=== PATIENT | female | born 1940 | race Caucasian/White ===

== ENCOUNTER 2025-05-05 18:14 | Inpatient (IN) | payer MEDICARE, MEDICAID, SELFPAY ==
[2025-05-05 18:19] VITALS: BP 128/64; PULSE 76; RESP 19; TEMP 36.6; O2SAT 95
--- NOTE | 2025-05-05 18:24 | PD.EDABDPN ---
ED Abdominal Pain RME/HPI General Chief Complaint: Nausea/Vomiting/Diarrhea Stated complaint: ABD PAIN Arrival date/time: 05/05/25 18:14 RME / HPI RME / HPI narrative: This section includes all my notes and documentations, including HPI, PE, and ED course. Donn Mantilla MD HPI: 85 y/o female with SHx of Hysterectomy and Hx of Type II DM and CHF BIBA from [facility] presents with several days of abdominal distention and vomiting. Denies history of liver disease or alcohol use. No other complaints. ROS: All negative except as documented in HPI. Physical Exam: General: Alert and oriented. In mild respiratory distress. Eyes: Conjunctivae and lids clear. ENT: No nasal congestion. Neck: Supple. Heart: Irregularly irregular (68 bpm). Lungs: In mild respiratory distress. Mildly decreased air movement with rales. Abdomen: Severely distended with equivocal tenderness, difficult to localize. Back: No CVA tenderness. Skin: Warm and dry. Legs: Moderate edema. Neuro: Alert and oriented X 3. I reviewed all diagnostic test results: My interpretation of the EKG is: Atrial fibrillation (73 bpm) with nonspecific ST-T changes. My interpretation of the chest x-ray is increased vascular congestion. My review of the Venous Doppler Study report is no DVT. My review of the Chest CTA report is: Negative for pulmonary artery emboli. Cirrhosis, prominent ascites. My review of the Abdomen/Pelvis CT report is: Cirrhosis. Prominent ascites. Splenomegaly. Blood tests and urine tests remarkable for ESR 84, D-dimer 2170, Cr 1.4, Mg 1.3, Alk Phos 360, CRP 2.8, BNP 147, and Glu 193. Covid/Influenza: Negative. At this point, diagnoses include: Ascites, Cirrhosis, Hypomagnesemia, MACIEL, CHF, Hyperglycemia. Treatment here from me included: Morphine 2 mg, Zofran 4 mg, and SoluMedrol 125 mg (for itching of her legs). Patient remained stable. 2122: I discussed the case with our health safety coordinator and our hospitalist. About the presentation and exam and diagnostics and treatments here. And need of further care in the hospital. Will accept the patient. Donn Mantilla MD Related Data Home Medications ?Medication ?Instructions ?Recorded ?Confirmed desloratadine 5 mg tablet 5 mg PO DAILY 01/26/23 07/19/24 (Clarinex) donepezil 5 mg tablet 5 mg PO DAILY 01/26/23 07/19/24 aspirin 325 mg tablet,delayed 325 mg PO QDAY 06/07/24 07/19/24 release levothyroxine 137 mcg tablet 137 mcg PO QAM 06/07/24 07/19/24 (Synthroid) metformin 500 mg tablet,extended 500 mg PO QPM 06/07/24 07/19/24 release 24 hr sacubitril 97 mg-valsartan 103 mg 1 tab PO BID 06/07/24 07/19/24 tablet (Entresto) spironolactone 25 mg tablet 25 mg PO QDAY 06/07/24 07/19/24 trimethoprim 100 mg tablet 100 mg PO QDAY 06/07/24 07/19/24 Previous Rx's ?Medication ?Instructions ?Recorded furosemide 20 mg tablet 20 mg PO QAM #30 tabs 06/09/24 gabapentin 100 mg capsule 100 mg PO TID 30 days #90 caps 07/19/24 hydrocodone 5 mg-acetaminophen 325 1 tab PO Q8H PRN pain #14 tabs 07/19/24 mg tablet Allergies Allergy/AdvReac Type Severity Reaction Status Date / Time codeine Allergy Severe HOT FLASHES Verified 06/07/24 12:25 UNKNOWN ANTIBIOTIC Allergy Severe Hives Uncoded 06/07/24 12:25 Review of Systems Review of Systems Systems Reviewed: All systems reviewed, normal except as documented Past Medical History Past Medical History NEUROLOGIC: Positive Dementia CARDIAC: Positive Cardiac Disorders, Congestive Heart Failure and Hypertension MUSCULOSKELETAL: Positive Arthritis ENT: Positive Cataracts ENDOCRINE: Positive Diabetes Mellitus Type 2 and Hypothyroidism OTHER HISTORY: Positive Radiation Therapy and Cancer Surgical History SURGICAL: Positive Hysterectomy ED Exam Narrative Physical exam: Refer to HPI Course Course Course Narrative: CXR is ordered for determining the etiology of shortness of breath. Quality Measures none Orders Category Date Time Status Bedside COVID-19 Antigen Test NOW Care 05/05/25 18:36 Active Bedside Influenza A&B Antigen Test NOW Care 05/05/25 18:36 Completed COVID-19 Screening Questionnaire NOW Care 05/05/25 21:[address] Screening NOW Care 05/05/25 18:[address] Screening NOW Care 05/05/25 20:01 Completed Decision to Admit X1 Care 05/05/25 21:56 Completed EKG (ED ONLY) *Do not use* NOW Care 05/05/25 18:36 Completed Saline [Insert IV] NOW Care 05/05/25 18:36 Active Straight [In and Out Catheter] X1 Care 05/05/25 18:36 Completed Consult to Gastroenterology Stat Cons 05/05/25 21:[address] abdomen pelvis w con Stat Exams 05/05/25 18:[address] angio chest Stat Exams 05/05/25 18:37 Completed EKG (ED Only) Stat Exams 05/05/25 18:36 Draft US abdomen Stat Exams 05/05/25 21:26 Completed US venous doppler LE BI Stat Exams 05/05/25 20:01 Completed XR chest 1V portable Stat Exams 05/05/25 18:36 Completed Ammonia Stat Lab 05/05/25 19:01 Completed Amylase Stat Lab 05/05/25 19:01 Completed BNP [B-Type Natriuretic Peptide] Stat Lab 05/05/25 19:01 Completed Bilirubin,Direct Stat Lab 05/05/25 19:01 Completed Blood Culture (Lab) Stat Lab 05/05/25 19:01 Received CBC Stat Lab 05/05/25 19:01 Completed CMP [Comprehensive Metabolic Panel] Stat Lab 05/05/25 19:01 Completed CRP [C-Reactive Protein] Stat Lab 05/05/25 19:01 Completed D-Dimer Stat Lab 05/05/25 19:01 Completed ESR [Sed Rate (ESR)] Stat Lab 05/05/25 19:01 Completed Free T4 (Free Thyroxine) Stat Lab 05/05/25 19:01 Completed Lactate (Lactic Acid) Stat Lab 05/05/25 19:01 Completed Lipase Stat Lab 05/05/25 19:01 Completed Magnesium Stat Lab 05/05/25 19:01 Completed PT [Prothrombin Time with INR] Stat Lab 05/05/25 19:01 Completed PTT [Partial Thromboplastin Time] Stat Lab 05/05/25 19:01 Completed Procalcitonin Stat Lab 05/05/25 19:01 Completed TSH [Thyroid Stimulating Hormone] Stat Lab 05/05/25 19:01 Completed Troponin I Stat Lab 05/05/25 19:01 Completed UA, C/S IF [Urinalysis, C/S if Indicated] Stat Lab 05/05/25 21:29 Completed Magnesium Sulfate 2 GM Ivpb [Magnesium Sulfate Ivpb] Med 05/05/25 20:00 Discontinued 2 gm in 50 ml IV X1 MethylPREDNISolone.* [SoluMEDROL Inj] Med 05/05/25 21:30 Discontinued 125 mg IVP X1 ONE Morphine Inj Med 05/05/25 18:36 Discontinued 2 mg IVP X1 ONE Ondansetron Inj [Zofran Inj] Med 05/05/25 18:36 Discontinued 4 mg IVP X1 ONE Vital Signs Vital signs: Vital Signs Temperature 97.8 F 05/05/25 18:19 Pulse Rate 76 05/05/25 18:19 Respiratory Rate 19 05/05/25 18:19 Blood Pressure 128/64 05/05/25 18:19 Pulse Oximetry (%) 95 05/05/25 18:19 Oxygen Delivery Method Room Air 05/05/25 18:19 Abdominal Pain MDM MDM Narrative MDM Narrative:: Scribe Attestation: I, Mana Tejada, am scribing for and in the presence of Dr. Mantilla. Provider Notation: Although this document has been carefully reviewed, there may still be some phonetic and other typographical errors.? These errors are purely grammatical due to imperfections in the software program and should not be construed in any way to? compromise the substance of the patient's medical care during this visit. 85 y/o female with SHx of Hysterectomy and Hx of Type II DM and CHF BIBA from [facility] presents with several days of abdominal distention and vomiting. Denies history of liver disease or alcohol use. No other complaints. Patient data External records reviewed:: [facility] previous records (Reviewed prior ED records from 07/23/24. Patient was seen for Atypical chest pain.) and EMS form Clinical information provided by:: patient and EMS Social determinants that could affect healthcare access:: none Patient has the following chronic illnesses:: Dementia, Congestive Heart Failure, Hypertension, Arthritis, Cataracts, Diabetes Mellitus Type 2, Hypothyroidism How is presenting disease/condition affected by chronic disease/condition?: exacerbated by Evaluation data The following diagnostics were reviewed and interpreted by me:: lab results, radiology exam(s) and EKG tracing(s) (My interpretation of the EKG is: Atrial fibrillation (73 bpm) with nonspecific ST-T changes. Donn Mantilla MD) Lab and/or radiology exams considered but not ordered:: None Interpretation Summary: I reviewed all diagnostic test results: My interpretation of the EKG is: Atrial fibrillation (73 bpm) with nonspecific ST-T changes. My interpretation of the chest x-ray is increased vascular congestion. My review of the Venous Doppler Study report is no DVT. My review of the Chest CTA report is: Negative for pulmonary artery emboli. Cirrhosis, prominent ascites. My review of the Abdomen/Pelvis CT report is: Cirrhosis. Prominent ascites. Splenomegaly. Blood tests and urine tests remarkable for ESR 84, D-dimer 2170, Cr 1.4, Mg 1.3, Alk Phos 360, CRP 2.8, BNP 147, and Glu 193. Covid/Influenza: Negative. Medications / Prescriptions Medications or Prescriptions considered but not ordered:: None Medication administrations:: Medication Administration History Acetaminophen (Acetaminophen 325 Mg Tablet) 650 mg PO Q6H PRN PRN Reason: Fever >101.5 Stop: 06/04/25 22:17 Acetaminophen (Acetaminophen 325 Mg Tablet) 650 mg PO Q6H PRN PRN Reason: PAIN SCALE 1-3 (mild Stop: 06/04/25 22:22 Hydrocodone Bitart/Acetaminophen (Hydrocodone/Apap 5/325 Tablet) 1 tab PO Q4HR PRN PRN Reason: PAIN SCALE 4-6 (Moderate Stop: 05/10/25 22:22 Atorvastatin Calcium (Atorvastatin Calcium 20 Mg Tablet) 20 mg PO HS [facility] Stop: 06/05/25 20:59 Carvedilol (Carvedilol 3.125 Mg Tablet) 3.125 mg PO BIDWM [facility] Stop: 06/05/25 07:59 Donepezil HCl (Donepezil Hcl 5 Mg Tablet) 5 mg PO HS [facility] Stop: 06/05/25 20:59 Furosemide (Furosemide 40 Mg Tablet) 40 mg PO QDAY [facility] Stop: 06/05/25 08:59 Levothyroxine Sodium (Levothyroxine Sodium 100 Mcg Tablet) 150 mcg PO ACBR [facility] Stop: 06/05/25 05:59 Loratadine (Loratadine 10 Mg Tablet) 10 mg PO QDAY [facility] Stop: 06/05/25 08:59 Ondansetron HCl (Ondansetron Inj 2 Mg/Ml Inj 2 Ml) 4 mg IVP Q6H PRN; Protocol PRN Reason: NAUSEA OR VOMITING Stop: 06/04/25 22:22 Spironolactone (Spironolactone 25 Mg Tablet) 50 mg PO QDAY [facility] Stop: 06/04/25 23:09 Discontinued Medications Magnesium Sulfate (Magnesium Sulfate Ivpb) 2 gm in 50 mls @ 25 mls/hr IV X1 ONE Stop: 05/05/25 21:59 Last Infusion: 05/05/25 22:46 Dose: Infused Documented By: Admin: 05/05/25 20:44 Dose: 25 mls/hr Documented By: MARILIA Methylprednisolone Sodium Succinate (Methylprednisolone Sod Succ 62.5 Mg/Ml 2ml Vial) 125 mg IVP X1 ONE Stop: 05/05/25 21:31 Last Admin: 05/05/25 21:45 Dose: 125 mg Documented By: MAE Morphine Sulfate (Morphine Sulf Inj 10 Mg/Ml Vial) 2 mg IVP X1 ONE Stop: 05/05/25 18:37 Last Admin: 05/05/25 19:05 Dose: Not Given Documented By: JEFF Non-Admin Reason: Patient Refused Ondansetron HCl (Ondansetron Inj 2 Mg/Ml Inj 2 Ml) 4 mg IVP X1 ONE; Protocol Stop: 05/05/25 18:37 Last Admin: 05/05/25 19:05 Dose: 4 mg Documented By: JEFF Treatment here from me included: Morphine 2 mg, Zofran 4 mg, and SoluMedrol 125 mg (for itching of her legs). Consultations Consultation(s) initiated? (list below): Yes Consultation #1 (Physician, Specialty, Details): 2122: I discussed the case with our health safety coordinator and our hospitalist. About the presentation and exam and diagnostics and treatments here. And need of further care in the hospital. Will accept the patient. Time: 21:19 Diagnosis Differential diagnosis abdominal pain: abdominal pain, constipation, diverticulitis, gastroenteritis, pancreatitis, small bowel obstruction and other (Gastroparesis, Crohn's, ulcerative colitis, celiac disease, pancreatic insufficiency, gastric outlet obstruction, ascites) Most likely diagnosis given after review of the tests above:: At this point, diagnoses include: Ascites, Cirrhosis, Hypomagnesemia, MACIEL, CHF, Hyperglycemia. Admission Indicated Admission indicated?: indicated Explain why admission is indicated or not indicated:: Ascites, Cirrhosis, Hypomagnesemia, MACIEL, CHF, HYperglycemia Admission Request Was there a request for admission?: Yes Admission Attestation Admission request attestation: Discussed case with Hospitalist service regarding admission. Discussed patients ED course, exam findings, labs, and radiology results. The Hospitalist [agrees] to accept the patient for admission. Disposition Plan Disposition Plan: Admit Discharge Plan Plan Patient Disposition: Admit Acute Care w/in Hospital Problem List Clinical Impression: Ascites, Cirrhosis, Hypomagnesemia, MACIEL (acute kidney injury), Hyperglycemia, CHF (congestive heart failure)
--- NOTE | 2025-05-05 18:36 | EKG_ITS ---
[facility] Test Date: 2025-05-05 Pat Name: ELZBIETA PLATA Department: Room: - Gender: Female [employer]: : 1940 Requested By: Donn Francisco Order Number: [id number] Reading MD: Donn Francisco Measurements Intervals [place] Rate: 68 P: -79 GA: 220 QRS: -59 QRSD: 116 T: 94 QT: 400 QTc: 426 Interpretive Statements ECTOPIC ATRIAL RHYTHM WITH FIRST DEGREE AV BLOCK LOW QRS VOLTAGE IN PRECORDIAL LEADS [QRS DEFLECTION < 1.0 mV IN CHEST LEADS] LEFT VENTRICULAR HYPERTROPHY AND ST-T CHANGE [VOLTAGE CRITERIA PLUS ST/T ABNORMALITY] INFERIOR MYOCARDIAL INFARCTION , OF INDETERMINATE AGE [40+ ms Q WAVE AND/OR ST/T ABNORMALITY IN II/aVF] ANTEROLATERAL MYOCARDIAL INFARCTION , OF INDETERMINATE AGE [40+ ms Q WAVE IN I/aVL/V3-V6] Compared to ECG 07/16/2024 10:09:39 Ectopic atrial rhythm now present First degree AV block now present Low QRS voltage now present Left anterior fascicular block no longer present ST (T wave) deviation still present Myocardial infarct finding still present /[id number]/S0/[id number].pdf
--- NOTE | 2025-05-05 18:36 | XR_ITS ---
Examination: AP chest single view Technique one AP portable upright chest single view Date and time: May 05, 2025 1838 hours INDICATIONS: Shortness of breath today. FINDINGS: Mild prominence left ventricle Enlarged ectatic thoracic aorta. Mild vascular congestion Mild elevation right hemidiaphragm. Subsegmental atelectasis left base. No pneumonia or pulmonary edema IMPRESSION: No pneumonia or pulmonary edema. Mild vascular congestion
--- NOTE | 2025-05-05 18:37 | XR_ITS ---
Examination: CTA chest with intravenous contrast 2-D reconstructions 3-D reconstructions, vascular Date and time of exam: May 05, 2025 1953 hours INDICATIONS: Shortness of chest pain beginning 7 days ago CTDI: vol (mGy) 33.72 DLP: (mGycm) 334 Technique: Multiple axial sections of the thorax have been obtained. 3 mm slice thickness, from below the hemidiaphragms to above the apices of the lungs. Mediastinal and lung density settings have been obtained. 2-D sagittal and coronal reconstructions. 3-D angiographic renderings, 3-D volume renderings, 3D post processing, vascular maximum intensity projections obtained. Contrast administered is 60 cc Isovue 300. Low dose protocols were performed. One or more of the following dose reduction techniques were used; automated exposure control, adjustment of the mA and/or KV according to patient size, use of iterative reconstruction technique. Findings: Transverse dimension ascending thoracic aorta 4.6 cm No pulmonary artery emboli Significant calcification left anterior descending coronary artery. No paratracheal tracheobronchial or bronchopulmonary adenopathy Bilateral calcified granulomas Descending thoracic aorta AP dimension 3.4 cm No pneumonia or pulmonary edema Cirrhosis Prominent ascites Absent gallbladder Splenomegaly. IMPRESSION: Thoracic aortic aneurysmal dilatation Negative for pulmonary artery emboli Cirrhosis, prominent ascites
--- NOTE | 2025-05-05 18:37 | XR_ITS ---
Examination: CT abdomen with intravenous contrast CT pelvis with intravenous contrast 2-D coronal reconstructions 2-D sagittal reconstructions Date and time of exam:May 05, 2025 195 hours COMPARISON: July 16, 2024 INDICATIONS: Abdominal pain and distention today. CTDI: vol (mGy) 10.6 DLP: (mGycm) 651 Technique: Multiple axial sections of the abdomen and pelvis have been obtained. 64 slice high-resolution scanner used. 3 mm axial sections have been obtained, post intravenous injection of 60 cc Isovue 300 2-D sagittal, coronal reconstructions obtained. Low dose protocols were performed. One or more of the following dose reduction techniques were used; automated exposure control, adjustment of the mA and/or KV according to patient size, use of iterative reconstruction technique. Findings: Cirrhosis Prominent ascites Splenomegaly Portosystemic collateral vessels medial to the spleen No pancreatic or adrenal mass Severe bilateral renal scar formation Abdominal aortic calcification no aneurysmal dilatation. No bowel obstruction Intact urinary bladder Absent uterus Bilateral inguinal hernias, containing fluid on the left Severe osteopenia Chronic osteoporotic compression L1 Significant narrowing hip joints IMPRESSION: Cirrhosis Prominent ascites Splenomegaly Portosystemic collateral vessels medial to the spleen Severe bilateral renal scar formation
[2025-05-05 18:38] VITALS: PULSE 77; O2SAT 99; BMI 29.0
[2025-05-05] MEDS: ONDANSETRON INJ 2 MG/ML INJ 2 ML 4 MG IVP (19:05)
[2025-05-05 19:15] LABS: Lactate (Lactic Acid) 1.9 mMol/L (0.4-2.0)
[2025-05-05 19:20] LABS: Basophils # (Auto) 0.1 Thou/mm3 (0.0-0.2); Basophils % (Auto) 1 % (0-2.5); Eosinophils # (Auto) 0.6 Thou/mm3 (0.0-0.5); Eosinophils % (Auto) 11 % (0-10); Hematocrit 39.9 % (36.0-46.0); Hemoglobin 12.8 g/dL (12.0-16.0); Immature Granulocytes Auto 0.01 Thou/mm3 (0.00-0.00); Lymphocytes # (Auto) 1.1 Thou/mm3 (1.0-4.8); Lymphocytes % (Auto) 20 % (10-50); Mean Corpuscular HGB Conc 32.1 g/dl (31.0-37.0); Mean Corpuscular Hemoglobin 31.9 pg (25.0-35.0); Mean Corpuscular Volume 100 fL (80-100); Monocytes # (Auto) 0.6 Thou/mm3 (0.0-0.8); Monocytes % (Auto) 10 % (0-12); Neutrophils # (Auto) 3.1 Thou/mm3 (1.8-7.7); Neutrophils % (Auto) 58 % (37-80); Nucleated Red Blood Cell # 0.00 Thou/mm3 (0.00-0.00); Nucleated Red Blood Cell % 0 /100 WBC (0); Platelet Count 106 Thou/mm3 (140-440); RDW Standard Deviation 54.4 fL (36.4-46.3); Red Blood Count 4.01 Miln/mm3 (4.00-5.20); White Blood Count 5.4 Thou/mm3 (3.6-11.0)
[2025-05-05 19:34] LABS: INR 1.0 (0.9-1.3); Partial Thromboplastin Time 30.7 Seconds (22.0-36.0); Prothrombin Time 11.2 Seconds (9.0-12.2)
[2025-05-05 19:37] LABS: Ammonia 25 uMol/L (11-32)
[2025-05-05 19:42] LABS: Sed Rate (ESR) 84 mm/hr (0-30)
[2025-05-05 19:45] LABS: Alanine Aminotransferase 35 U/L (10-49); Albumin, Serum 2.9 gm/dL (3.4-4.8); Albumin/Globulin Ratio 0.8 (1.2-2.2); Alkaline Phosphatase 360 U/L (46-116); Amylase 54 U/L (30-118); Anion Gap 8 (7-16); Aspartate Amino Transferase 57 U/L (0-34); BUN/Creatinine Ratio 19 Ratio (12-20); Bilirubin,Direct 0.3 mg/dL (0.0-0.3); Bilirubin,Total 0.6 mg/dL (0.3-1.2); Blood Urea Nitrogen 26 mg/dL (9-23); C-Reactive Protein 2.8 mg/dL (0.0-0.9); Calcium 8.6 mg/dL (8.3-10.6); Calcium (Corrected) 9.5 mg/dL (8.5-10.1); Carbon Dioxide 23.1 mMol/L (20.0-31.0); Chloride 107 mMol/L (98-107); Creatinine (Component) 1.4 mg/dL (0.6-1.3); Estimated Creatinine Clearance 32.2 mL/min (>60); Free T4 (Free Thyroxine) 1.31 ng/dL (0.89-1.76); Globulin 3.8 gm/dL (2.3-3.5); Glucose 193 mg/dL (74-106); Lipase 32 U/L (12-53); Magnesium 1.3 mg/dL (1.6-2.6); Osmolality,Calculated 285 (275-295); Potassium 4.4 mMol/L (3.4-5.1); Procalcitonin 0.40 ng/ml (0.0-0.49); Sodium 138 mMol/L (136-145); Thyroid Stimulating Hormone 0.80 uIU/mL (0.55-4.78); Total Protein 6.7 gm/dL (5.7-8.2); Troponin I 0.021 ng/mL (0.0-0.045); eGFR 37 See Note
[2025-05-05 19:49] LABS: D-Dimer 2170 ng/mL (<600)
[2025-05-05 19:59] LABS: B-Type Natriuretic Peptide 147 pg/mL (0-100)
--- NOTE | 2025-05-05 20:01 | XR_ITS ---
Examination: Venous duplex lower extremity sonogram, bilateral. Date and time of exam: May 05, 2025 2014 hours INDICATIONS: Elevated d-dimer and leg pain and edema beginning 3 days ago Technique: Multiple sonographic images of the deep venous system have been obtained. B-mode/2-D grayscale imaging of vascular structures and Doppler spectral analysis (waveforms) and color performed Both legs are examined. Findings: Deep venous systems do not demonstrate abnormal echogenicity. All visualized deep veins exhibit compressibility. All visualized deep veins exhibit augmentation. Impression: Negative for deep vein thrombosis
[2025-05-05] MEDS: Magnesium Sulfate 2 GM Ivpb 2 GM/50 ML BAG IV (20:44)
--- NOTE | 2025-05-05 21:26 | XR_ITS ---
Examination: Abdomen sonogram, complete Date and time of exam: May 05, 2025 1008 hours INDICATIONS: Diagnosis cirrhosis and ascites with abdominal pain. Technique: Multiple real-time grayscale transabdominal sonographic images of the abdomen have been obtained. Findings: Absent gallbladder Common bile duct 6 mm Pancreatic head 2.9 cm Proximal aorta 3.0 cm Cirrhosis, liver 14.7 cm no focal liver lesions Normal hepatopedal portal venous flow Patent IVC Right kidney 10.1 cm cortex 1.4 cm left kidney 8.8 cm renal cortex 1.1 cm Moderate renal scarring Spleen 11.9 cm IMPRESSION: No common bile duct stones Cirrhosis no focal liver lesions
[2025-05-05 21:34] LABS: Collection Type, Urine Clean Catch
[2025-05-05 21:37] VITALS: BP 171/94; PULSE 66; RESP 20; TEMP 36.6; O2SAT 98
--- NOTE | 2025-05-05 21:37 | PC.NURSE ---
assisted CN with straight cath. paige care provided, brief changed linen changed, purewick put in place. pt has break down at brief line. RN made aware
[2025-05-05] MEDS: MethylPREDNISolone SOD SUCC 62.5 MG/ML 2ML VIAL 125 MG IVP (21:45)
[2025-05-05 21:53] LABS: Bacteria,Urine Rare; Bilirubin,Urine Negative (Negative); Blood,Urine Negative (Negative); Clarity,Urine Clear (Clear/Hazy); Color,Urine Lt-Yellow (Lt Yel-Yel); Culture Indicated,Urine Not Indicated; Glucose, Urine 4+ (Negative); Ketones,Urine Negative (Negative); Leukocyte Esterase,Urine Negative (Negative); Nitrite,Urine Negative (Negative); PH,Urine 6.0 (5.0-7.0); Protein,Urine Negative (Neg - Trace); RBC,Urine 1 /hpf (0-3); Specific Gravity,Urine 1.023 (1.001-1.035); Squamous Epithelial Cell,Urine < 1 /hpf (0-5); Urobilinogen,Urine Negative mg/dL (0.0-1.0); WBC,Urine 5 /hpf (0-5)
--- NOTE | 2025-05-05 22:29 | ESHP_ITS ---
Documentation for date of: 05/05/25 HPI History of Present Illness Chief complaint: Progressive abdominal distention History of present illness: Ms. Maxine Nguyen is an 85-year-old female with history of CHF with HFrEF (EF 25?35%), DM2, hypothyroidism, dementia, recurrent UTIs, bladder cancer in remission, lumbar spinal stenosis, prior cholecystectomy, and history of squamous cell carcinoma of the skin, who was brought from her SNF for evaluation of progressive abdominal distension and recent diarrhea. Caregiver reports the swelling was first noted ~3 weeks ago, with noticeable worsening over the past few days. Associated symptoms include 3?4 days of diarrhea (3?4 episodes/day) and intermittent vomiting ? historically in the mornings, now also after lunch. No hematemesis, melena, or hematochezia. No fevers, chills, jaundice, or shortness of breath. Appetite decreased. Weight gain ~10 lbs in the past month. No prior known cirrhosis or chronic liver disease. Denies alcohol use and no history of viral hepatitis. She has a history of bladder cancer ~10 years ago, successfully treated, no recurrence. History of squamous cell carcinoma of the skin with scar on left leg and a lesion above the forehead. She also has a heat- related ulcer under the right lower abdomen and peeling skin on the right leg; wound care was ordered. Baseline function: wheelchair-dependent at SNF, participates in physical therapy, requires assistance for transfers, previously able to get in/out of truck with some help. Caregiver notes decreased mobility this past weekend due to distension. In the ED, CT A/P showed cirrhosis with large-volume ascites, splenomegaly, and portosystemic collaterals. Vitals stable, afebrile. Given inability of SNF to arrange outpatient drainage, she is admitted for IR-guided paracentesis and further workup of new-onset cirrhosis/ascites. Review of Systems: * General: +Weight gain, -fever, -chills. * Cardiac: -Chest pain, +history CHF, no recent palpitations. * Resp: No SOB, no cough. * GI: +Abdominal distension, +diarrhea, +nausea/vomiting, -GI bleeding. * : No dysuria or hematuria. * Neuro: Baseline dementia, no new focal deficits reported. * Skin: +History skin cancer, +heat ulcer, +peeling skin. Past Medical History: * CHF, HFrEF (EF 25?35%) * Type 2 diabetes mellitus, non-insulin dependent * Hypothyroidism * Dementia * Recurrent UTIs * History bladder cancer, in remission * Lumbar spinal stenosis and chronic osteoporotic compression fracture L1 * History squamous cell carcinoma of skin (left leg, forehead lesion) * Cholecystectomy * Hysterectomy Past Surgical History: * Hysterectomy * Cholecystectomy Medications: Continued on admission: * Atorvastatin 20 mg qHS * Carvedilol 3.125 mg BID (hold if BP <100/60) * Donepezil 5 mg daily * Furosemide 40 mg daily (hold if BP <110/60) * Levothyroxine 150 mcg daily * Loratadine 5 mg daily Newly started inpatient: * Spironolactone 50 mg daily Other SNF meds: Will resume later if clinically appropriate. Allergies: * Codeine Family History: * Non-contributory for liver disease. 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 Eyes: No scleral icterus. CV: RRR, no murmurs, no JVD, BLE edema. Resp: Clear to auscultation bilaterally. Abdomen: Distended, mild diffuse tenderness, positive fluid wave, no rebound/guarding, bowel sounds present. Heat ulcer under right lower abdomen. Skin: Scar on left leg from prior SCC, lesion above forehead, peeling skin right leg, small skin tear left lower leg. Neuro: Alert, follows commands, baseline mild cognitive impairment. Results: Labs 05/05/25 19:01 05/05/25 19: Labs: Short CBC 05/05/25 Range/Units 19: WBC 5.4 (3.6-11.0) Thou/mm3 Hgb 12.8 (12.0-16.0) g/dL Hct 39.9 (36.0-46.0) % Plt Count 106 L (140-440) Thou/mm3 BMP 05/05/25 19:01 Sodium 138 Potassium 4.4 Chloride 107 Carbon Dioxide 23.1 BUN 26 H Creatinine 1.4 H Glucose 193 H Calcium 8.6 Cardiac Enzymes 05/05/25 Range/Units 19:01 Troponin I 0.021 (0.0-0.045) ng/mL Liver Function 05/05/25 Range/Units 19:01 Total Bilirubin 0.6 (0.3-1.2) mg/dL Direct Bilirubin 0.3 (0.0-0.3) mg/dL AST 57 H (0-34) U/L ALT 35 (10-49) U/L Alkaline Phosphatase 360 H (46-116) U/L Albumin 2.9 L (3.4-4.8) gm/dL Urine 05/05/25 Range/Units 21:29 Urine Color Lt-Yellow (Lt Yel-Yel) Urine Clarity Clear (Clear/Hazy) Urine pH 6.0 (5.0-7.0) Ur Specific [place] 1.023 (1.001-1.035) Urine Protein Negative (Neg - Trace) Urine Glucose (UA) 4+ A (Negative) Quality Measures Quality Measures VTE prophylaxis Advance care planning discussed with:: patient, child and legal surragate Medications Home Medications and Allergies Home Medications ?Medication ?Instructions ?Recorded ?Confirmed ?Type desloratadine 5 mg tablet 5 mg PO DAILY 01/26/2307/19 History (Clarinex) donepezil 5 mg tablet 5 mg PO DAILY 01/26/2307/19 History aspirin 325 mg tablet,delayed 325 mg PO QDAY 06/07/24 07/19/24 History release levothyroxine 137 mcg tablet 137 mcg PO QAM 06/07/24 1 History (Synthroid) metformin 500 mg tablet,extended 500 mg PO QPM 4 07/19/24 History release 24 hr sacubitril 97 mg-valsartan 103 mg 1 tab PO BID 4 07/19/24 History tablet (Entresto) spironolactone 25 mg tablet 25 mg PO QDAY 06/07/24 History trimethoprim 100 mg tablet 100 mg PO QDAY 06/07/24 History Allergies Allergy/AdvReac Type Severity Reaction Status Date / Time codeine Allergy Severe HOT FLASHES Verified 06/07/24 12:25 UNKNOWN ANTIBIOTIC Allergy Severe Hives Uncoded 06/07/24 12:25 Visit Medications Acetaminophen (Acetaminophen 325 Mg Tablet) 650 mg PO Q6H PRN PRN Reason: Fever >101.5 Stop: 06/04/25 22:17 Acetaminophen (Acetaminophen 325 Mg Tablet) 650 mg PO Q6H PRN PRN Reason: PAIN SCALE 1-3 (mild Stop: 06/04/25 22:22 Hydrocodone Bitart/Acetaminophen (Hydrocodone/Apap 5/325 Tablet) 1 tab PO Q4HR PRN PRN Reason: PAIN SCALE 4-6 (Moderate Stop: 05/10/25 22:22 Ondansetron HCl (Ondansetron Inj 2 Mg/Ml Inj 2 Ml) 4 mg IVP Q6H PRN; Protocol PRN Reason: NAUSEA OR VOMITING Stop: 06/04/25 22:22 Discontinued Medications Magnesium Sulfate (Magnesium Sulfate Ivpb) 2 gm in 50 mls @ 25 mls/hr IV X1 ONE Stop: 05/05/25 21:59 Last Admin: 05/05/25 20:44 Dose: 25 mls/hr Methylprednisolone Sodium Succinate (Methylprednisolone Sod Succ 62.5 Mg/Ml 2ml Vial) 125 mg IVP X1 ONE Stop: 05/05/25 21:31 Last Admin: 05/05/25 21:45 Dose: 125 mg Morphine Sulfate (Morphine Sulf Inj 10 Mg/Ml Vial) 2 mg IVP X1 ONE Stop: 05/05/25 18:37 Last Admin: 05/05/25 19:05 Dose: Not Given Ondansetron HCl (Ondansetron Inj 2 Mg/Ml Inj 2 Ml) 4 mg IVP X1 ONE; Protocol Stop: 05/05/25 18:37 Last Admin: 05/05/25 19:05 Dose: 4 mg Assessment & Plan Plan 85F from SNF with CHF (EF 25?35%), DM2, hypothyroidism, dementia, prior bladder CA in remission, hx squamous cell carcinoma of skin, presenting with ~3 wks progressive abdominal distension, diarrhea, and intermittent vomiting; CT shows cirrhosis with large-volume ascites, splenomegaly, portosystemic collaterals; admitted for IR-guided paracentesis and new cirrhosis workup. # Anasarca #Large-volume ascites Progressive over ~3 weeks with associated diarrhea, intermittent vomiting, and ~[address] A/P shows large-volume ascites, cirrhotic morphology, splenomegaly, and portosystemic collaterals. No fever, abdominal pain is mild, and no peritonitis signs. Likely multifactorial from new cirrhosis ? CHF contribution. Plan: * IR-guided paracentesis tomorrow; send ascitic fluid for cell count/diff, albumin, total protein, culture, Gram stain. * Calculate SAAG. * Monitor for SBP * Strict I&O, daily weights. * Continue furosemide 40 mg daily. * Started spironolactone 50 mg daily. * 2g sodium diet. # New diagnosis of cirrhosis No prior history of liver disease or alcohol use. Differential: NAFLD, cryptogenic, viral hepatitis, autoimmune hepatitis, metabolic disorders. No stigmata of chronic liver disease except ascites. Labs show hypoalbuminemia (2.9), elevated Alk Phos (360), mild AST elevation (57), normal INR. Plan: * Ordered hepatitis panel, SALLIE IFA, AMA, iron panel, ceruloplasmin, alpha-1 antitrypsin. * Avoid hepatotoxic meds. * Outpatient follow-up for long-term management. # HFrEF (EF 25?35%) History of moderate pulmonary hypertension. On exam, RRR, lungs clear, and b ilateral lower extremity edema present. BNP 147, no acute pulmonary congestion on CXR. Ascites may be partly cardiogenic in etiology. Follows Dr. Conway outpatient Plan: * Continue carvedilol 3.125 mg BID. * Continue furosemide 40 mg daily and spironolactone 50 mg daily. * Low sodium diet. * Monitor volume status closely given diuresis for ascites and existing edema. # History squamous cell carcinoma of skin Scar on left leg from prior lesion, another lesion above forehead. Plan: * Continue monitoring # Heat ulcer under right abdomen # Peeling skin on right leg Likely from friction and moisture; wound care ordered. Plan: * Continue wound care protocol. * Monitor for signs of infection. # Type 2 diabetes mellitus Previously on metformin and Jardiance; will continue tomorrow Plan: * SSI for inpatient glycemic control. * Resume outpatient regimen after discharge if safe. # Hypothyroidism Stable. Plan: * Continue levothyroxine 150 mcg daily. # Dementia Baseline cognitive impairment; oriented to person/time, occasional confusion. Plan: * Continue donepezil 5 mg daily. * Delirium precautions. # History bladder cancer In remission, no urinary symptoms currently. Plan: * Continue surveillance per outpatient urology/oncology. Health Maintenance: Disposition: Admit for anasarca, diagnostic/therapeutic paracentesis and cirrhosis workup. Feeding sodium diet. Thromboprophylaxis: SCDs, pharmacologic ppx if no contraindication after paracentesis. GI prophylaxis: Not indicated. Code Status: DNR/DNI ----- Plan discussed with attending physician Dr. Hilda Funez MD PGY-1 Internal Medicine Attending Provider Attestation/Addendum I attest that I was physically present for the evaluation, physical examination, lab and imaging review of the patient with the residents. I discussed the case with the residents and agree with the findings and plans of care as documented above. After examination of the patient and review of the clinical data I feel that this patient needs admission to the hospital for further treatment/evaluation. Patient is an 85 years old female with past medical history of HFrEF, diabetes mellitus, hypothyroidism, dementia, recurrent UTIs, bladder cancer in remission, lumbar spinal stenosis, cholecystectomy, squamous cell carcinoma of the skin who presented to the ED from [facility] with complaint of abdominal distention and diarrhea. Patient has been having diarrhea for last 3 to 4 days, she is also having progressive abdominal distention for last few weeks. She also has bilateral pedal edema and has gained nearly 10 pounds in the last month. In the ED, initial vitals were within normal limits, saturating well on room air. Lab results show platelets of 106, ESR 84, D-dimer 2170, BUN/creatinine 26/1.4, magnesium 1.3, AST 57, ALP 360, CRP 2.8, BNP 147, albumin 2.9. Urinalysis was negative for pyuria. Chest x-ray showed mild vascular congestion. Abdomen/pelvis CT showed cirrhosis with prominent ascites, splenomegaly, portosystemic collateral vessels and severe bilateral renal scar formation. Chest CTA was also done which was negative for PE. Lower extremity Doppler ultrasound was negative for DVT. Abdominal ultrasound showed absent gallbladder and no CBD stone. Upon exam, patient has bilateral pedal edema, abdomen is distended with positive fluid wave, dilated veins. We will admit the patient for management of anasarca, large ascites in setting of newly diagnosed cirrhosis. We will start her on Lasix, spironolactone, fluid restriction, low- sodium diet. We will obtain paracentesis tomorrow with ascitic fluid studies. Gastroenterology has been consulted by ED, will follow patient with us. Iron panel, alpha-1 antitrypsin viral, autoimmune hepatitis panel, has been ordered. We will continue Coreg for HFrEF, we will hold rest of the antihypertensives and monitor her blood pressure closely. Noted to have some ulcers and peeling of skin around abdomen and right leg, we will obtain wound care consult. Started on insulin regimen for diabetes. We will resume her levothyroxine and donepezil for her hypothyroidism and dementia. Patient has not have any bowel movement in the hospital, we will monitor closely, plan to start antibiotics if patient continues to have multiple bowel movements concerning for gastroenteritis. Helen Stevens MD
--- NOTE | 2025-05-05 22:56 | PD.IMCONS ---
HPI Data of Consult Requesting Physician: Helen Stevens MD Primary Care Provider: Narendra Traore MD ([facility]) Consult Narrative Reason for consult: New onset ascites, abdominal distention History of present illness: 85 years old female transferred from detention for abdominal distention which is basically new onset ascites with some shortness of breath Imaging studies did reveal patient has ascites Not much history is reliable from the patient She has a history of hypothyroidism dementia and systolic congestive heart failure cc:: cc: Helen Stevens MD Review of Systems Review of Systems Systems Reviewed: All systems reviewed, normal except as documented Past Medical History Surgical History OTHER SURGICAL HX: Systolic congestive heart failure Dementia Hypothyroidism Meds Home Medications and Allergies Home Medications ?Medication ?Instructions ?Recorded ?Confirmed ?Type desloratadine 5 mg tablet 5 mg PO DAILY 01/26/23 05/06/25 History (Clarinex) donepezil 5 mg tablet 5 mg PO DAILY 01/26/23 05/06/25 History aspirin 325 mg tablet,delayed 325 mg PO QDAY 06/07/24 05/06/25 History release levothyroxine 137 mcg tablet 137 mcg PO QAM 06/07/24 05/06/25 History (Synthroid) metformin 500 mg tablet,extended 500 mg PO QPM 06/07/24 05/06/25 History release 24 hr sacubitril 97 mg-valsartan 103 mg 1 tab PO BID 06/07/24 05/06/25 History tablet (Entresto) spironolactone 25 mg tablet 25 mg PO QDAY 06/07/24 05/06/25 History atorvastatin 20 mg tablet 20 mg PO HS 05/06/25 05/06/25 History carvedilol 3.125 mg tablet 3.125 mg PO Q12H 05/06/25 05/06/25 History furosemide 20 mg tablet 40 mg PO QAM 05/06/25 05/06/25 History sulfamethoxazole 400 1 tab PO QDAY 05/06/25 05/06/25 History mg-trimethoprim 80 mg tablet Allergies Allergy/AdvReac Type Severity Reaction Status Date / Time codeine Allergy Severe HOT FLASHES Verified 06/07/24 12:25 UNKNOWN ANTIBIOTIC Allergy Severe Hives Uncoded 06/07/24 12:25 Exam Vital Signs Temp Pulse Resp BP Pulse Ox O2 Del Method 97.9 F 66 20 171/94 H 98 Room Air 05/05/25 21:37 05/05/25 21:37 05/05/25 21:37 05/05/25 21:37 05/05/25 21:37 05/05/25 21:37 Constitutional Comments: Chronically ill-appearing Routine Respiratory Exam Comments: Normal to auscultation Routine Abdominal Exam Comments: Positive for ascites Results Labs 05/06/25 06:25 05/06/25 06:25 Labs: Short CBC 05/05/25 Range/Units 19:01 WBC 5.4 (3.6-11.0) Thou/mm3 Hgb 12.8 (12.0-16.0) g/dL Hct 39.9 (36.0-46.0) % Plt Count 106 L (140-440) Thou/mm3 BMP 05/05/25 19:01 Sodium 138 Potassium 4.4 Chloride 107 Carbon Dioxide 23.1 BUN 26 H Creatinine 1.4 H Glucose 193 H Calcium 8.6 Cardiac Enzymes 05/05/25 Range/Units 19:01 Troponin I 0.021 (0.0-0.045) ng/mL Liver Function 05/05/25 Range/Units 19:01 Total Bilirubin 0.6 (0.3-1.2) mg/dL Direct Bilirubin 0.3 (0.0-0.3) mg/dL AST 57 H (0-34) U/L ALT 35 (10-49) U/L Alkaline Phosphatase 360 H (46-116) U/L Albumin 2.9 L (3.4-4.8) gm/dL Urine 05/05/25 Range/Units 21:29 Urine Color Lt-Yellow (Lt Yel-Yel) Urine Clarity Clear (Clear/Hazy) Urine pH 6.0 (5.0-7.0) Ur Specific [place] 1.023 (1.001-1.035) Urine Protein Negative (Neg - Trace) Urine Glucose (UA) 4+ A (Negative) Assessment and Plan Additional Assessment & Plan Additional Plan: # New onset ascites in setting of cirrhotic liver disease etiology uncertain Complete workup ordered for the chronic active hepatitis Ultrasound-guided paracentesis ordered and could not send fluid for complete analysis as well as cytology Other medical problems include Systolic congestive heart failure Dementia hypothyroidism thank you very much for the opportunity to participate in the care of this patient
--- NOTE | 2025-05-05 23:08 | PC.NURSE ---
Send out labs-lab unable to send till am, labs will be drawn with am labs
[2025-05-05 23:17] VITALS: BP 132/67; PULSE 64; RESP 20; O2SAT 95
[2025-05-05 23:24] VITALS: PULSE 98; RESP 27; RESP 96
[2025-05-06] VITALS (11 sets, daily range): BP systolic 118–138; BP diastolic 61–86; PULSE 61–85; RESP 17–20; TEMP 36.3–36.6; O2SAT 93–97; BMI 29.0; BMI 28.9
--- NOTE | 2025-05-06 | XR_ITS ---
Examination: Ultrasound-guided paracentesis Abdominal sonogram limited Date and time of exam: May 16, 2025 1028 hours INDICATIONS: Cirrhosis, increasing ascites and abdominal distention this week Informed consent provided. A timeout was completed verifying correct patient, procedure, site, positioning, and special adequate movement if applicable. Technique: Multiple sonographic images of the abdomen have been obtained. Appropriate area for paracentesis was marked. Local anesthesia is obtained with 1% lidocaine. Yueh catheter is successfully introduced. Findings: Abdominal sonographic images demonstrate sufficient ascitic fluid for paracentesis. After placing the Yueh catheter, 6425 cc of fluid were successfully removed. During and after completion of the procedure the patient appear in satisfactory and stable condition with no complications observed. Estimated blood loss 0 cc Impression: Abdominal ascites Successful ultrasound-guided paracentesis as described above
[2025-05-06 00:52] LABS: Iron 55 mcg/dL (50-170); Percent Iron Saturation 24 % (20-55); Total Iron Binding Capacity 223 mcg/dL (250-425); Unsaturated Iron Binding 168 (225-295)
[2025-05-06] MEDS: SPIRONOLACTONE 25 MG TABLET 50 MG PO ×2 (00:53→08:16)
--- NOTE | 2025-05-06 00:54 | PC.NURSE ---
C/O itching to bilateral lower abd folds, noticed redness from itching notified Dr. Funez-new orders for claritin and hydrocortisone cream-see mar
[2025-05-06 01:30] LABS: AFP Non-Pregnant 1.60 ng/mL (<8.10); Hepatitis A Antibody IgM Non Reactive (Non React); Hepatitis B Core Antibody IgM Non Reactive (Non React); Hepatitis B Surface Antigen Non Reactive (Non React); Hepatitis C Antibody Non Reactive (Non React)
[2025-05-06] MEDS: LEVOTHYROXINE SODIUM 100 MCG TABLET 150 MCG PO (05:30)
[2025-05-06 06:45] LABS: Basophils # (Auto) 0.0 Thou/mm3 (0.0-0.2); Basophils % (Auto) 0 % (0-2.5); Eosinophils # (Auto) 0.0 Thou/mm3 (0.0-0.5); Eosinophils % (Auto) 0 % (0-10); Hematocrit 40.1 % (36.0-46.0); Hemoglobin 13.0 g/dL (12.0-16.0); Immature Granulocytes Auto 0.02 Thou/mm3 (0.00-0.00); Lymphocytes # (Auto) 0.6 Thou/mm3 (1.0-4.8); Lymphocytes % (Auto) 12 % (10-50); Mean Corpuscular HGB Conc 32.4 g/dl (31.0-37.0); Mean Corpuscular Hemoglobin 31.9 pg (25.0-35.0); Mean Corpuscular Volume 99 fL (80-100); Monocytes # (Auto) 0.0 Thou/mm3 (0.0-0.8); Monocytes % (Auto) 1 % (0-12); Neutrophils # (Auto) 4.1 Thou/mm3 (1.8-7.7); Neutrophils % (Auto) 86 % (37-80); Nucleated Red Blood Cell # 0.00 Thou/mm3 (0.00-0.00); Nucleated Red Blood Cell % 0 /100 WBC (0); Platelet Count 89 Thou/mm3 (140-440); RDW Standard Deviation 53.6 fL (36.4-46.3); Red Blood Count 4.07 Miln/mm3 (4.00-5.20); White Blood Count 4.7 Thou/mm3 (3.6-11.0)
[2025-05-06 06:58] LABS: Alanine Aminotransferase 33 U/L (10-49); Albumin, Serum 3.0 gm/dL (3.4-4.8); Albumin/Globulin Ratio 0.8 (1.2-2.2); Alkaline Phosphatase 369 U/L (46-116); Anion Gap 9 (7-16); Aspartate Amino Transferase 54 U/L (0-34); BUN/Creatinine Ratio 19 Ratio (12-20); Bilirubin,Total 0.8 mg/dL (0.3-1.2); Blood Urea Nitrogen 26 mg/dL (9-23); Calcium 8.7 mg/dL (8.3-10.6); Calcium (Corrected) 9.5 mg/dL (8.5-10.1); Carbon Dioxide 20.6 mMol/L (20.0-31.0); Chloride 105 mMol/L (98-107); Creatinine (Component) 1.4 mg/dL (0.6-1.3); Estimated Creatinine Clearance 32.2 mL/min (>60); Globulin 4.0 gm/dL (2.3-3.5); Glucose 234 mg/dL (74-106); INR 1.0 (0.9-1.3); Magnesium 2.1 mg/dL (1.6-2.6); Osmolality,Calculated 282 (275-295); Partial Thromboplastin Time 27.6 Seconds (22.0-36.0); Phosphorous 4.2 mg/dL (2.4-5.1); Potassium 4.8 mMol/L (3.4-5.1); Prothrombin Time 11.4 Seconds (9.0-12.2); Sodium 135 mMol/L (136-145); Total Protein 7.0 gm/dL (5.7-8.2); eGFR 37 See Note
--- NOTE | 2025-05-06 09:23 | PC.SS ---
Patient is an 85 year old female presenting to the hospital for Ascites. 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 Staff confirmed next of kin to be Carolyn her daughter [phone]. 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 PCP is Dr. Traore last appointment in March 2025. Next of kin: Carolyn Eisenberg Daughter [phone] PCP: Dr. Traore D/C: Return to [facility]
--- NOTE | 2025-05-06 13:37 | PC.PT ---
PT spoke with HAY Duncan who informed PT that since patient is a [place] [facility] resident at [facility] she would not need a PT eval for auth to return to the facility. Patient is wheelchair bound. Will cancel PT eval.
--- NOTE | 2025-05-06 15:17 | PC.SS ---
Rounding note: d/c possibly Friday/Friday.
--- NOTE | 2025-05-06 15:52 | PC.DIETICIAN ---
Ensure Plus 80z, BID w/Bkfst, and lunch.
--- NOTE | 2025-05-06 15:58 | ESPR_ITS ---
<Statement entered by Aaron Herring MD - 05/11/25 14:36> I reviewed above note and agree with findings and plans. I have also personally examined the patient with medicine team and went over assessment and plan with medical team including international trade manager and resident physician. <Statement entered by Arpita Dillon MD - 05/07/25 13:01> Patient was seen and examined by me personally. I have reviewed the below documentation by the team resident and agree with its findings. Discharge plan was discussed with the attending, Dr. Herring Patient admitted overnight for anasarca, suspicion of decompensated cirrhosis, no history of cirrhosis in the past, does have heart failure with severely reduced ejection fraction with EF 25 to 35% in [address] Conway outpatient. Patient on appropriate GDMT per medication review, will hold currently due to significant fluid overload with currently receiving IV diuresis, patient did undergo large-volume paracentesis ~6.4 L fluid removed, will order albumin 25%, patient will likely need 9-8mg of 25% albumin however will replace with 25 mg to avoid paracentesis induced circulatory dysfunction. Will hold on peritoneal fluid lab panel, currently low clinical suspicion of SBP, although we will order cytology. Will continue with IV diuresis, Coreg hold parameters SBP less than 100. Continue levothyroxine home dose, sliding scale insulin and home medication donepezil. Wound care is following. Arpita Dillon MD Internal Medicine, PGY-2 Documentation for date of: 05/06/25 Subjective Subjective Interval history: Patient admitted overnight. Seen and examined at bedside with daughter. Per daughter patient has a history of dementia, and alertness fluctuates. Most of history as per daughter. Patient's abdomen was noticeably distended last Friday and has progressively gotten worse, prompting ED visit. Per daughter, patient is [place], where they held Lasix and spironolactone depending on her blood pressure because she has been dizzy when standing up lately. The frequency of these medications or when they started being held are unknown. Patient has no known history of cirrhosis, but does have history of heart failure. Patient currently denies chest pain, shortness of breath, abdominal pain, and urinary symptoms. GI consult already placed, follow-up with autoimmune panel. Patient received IR paracentesis with 6.4 L removed, cytology order sent. Albumin replacement started. Started IV Lasix 40 mg. Hold spironolactone. Hold all home BP meds for now, carvedilol parameters to hole if SBP <100. Exam Vital Signs Temp Pulse Resp BP Pulse Ox O2 Del Method 97.4 F 82 19 132/76 H 95 Room Air 05/06/25 12:00 05/06/25 12:00 05/06/25 12:00 05/06/25 12:00 05/06/25 12:00 05/06/25 12:00 Narrative Exam GENERAL: AOx2, no acute distress HEENT: NC/AT, mucous membranes moist, bilateral sclera anicteric CARDIOVASCULAR: regular rate and rhythm, S1/S2 present, no murmurs appreciated PULMONARY: diminished b/l breath sounds, no rales/rhonchi/wheezes, no crackles ABDOMINAL: soft, non-tender, no rebound/guarding, bowel sounds present, + +distension EXTREMITIES: BLE +2 pitting edema up to hips SKIN: warm and dry, +2 inch wound lateral RLE, +chafing wounds inguinal folds L>R NEURO: CN II-XII grossly intact, no focal deficits, alert, following commands Objective Labs 05/06/25 06:25 05/06/25 06:25 Labs: Laboratory Results - last 24 hr 05/05/25 05/05/25 05/05/25 00:05 19:01 21:29 WBC 5.4 RBC 4.01 Hgb 12.8 Hct 39.9 MCV 100 MCH 31.9 MCHC 32.1 RDW Std Deviation 54.4 H Plt Count 106 L Neut % (Auto) 58 Lymph % (Auto) 20 [place] % (Auto) 10 Eos % (Auto) 11 H Baso % (Auto) 1 Neut # (Auto) 3.1 Lymph # (Auto) 1.1 [place] # (Auto) 0.6 Eos # (Auto) 0.6 H Baso # (Auto) 0.1 Immature Gran # (Auto) 0.01 H Absolute Nucleated RBC 0.00 Immature Gran % 0 Nucleated RBC % 0 ESR 84 H PT 11.2 INR 1.0 APTT 30.7 D-Dimer 2170 H Sodium 138 Potassium 4.4 Chloride 107 Carbon Dioxide 23.1 Anion Gap 8 BUN 26 H Creatinine 1.4 H Estim Creat Clear Calc 32.2 L eGFR 37 L BUN/Creatinine Ratio 19 Glucose 193 H Calculated Osmolality 285 Lactic Acid 1.9 Calcium 8.6 Corrected Calcium 9.5 Phosphorus Magnesium 1.3 L Iron 55 TIBC 223 L Iron Saturation 24 Unsat Iron Binding 168 L Total Bilirubin 0.6 Direct Bilirubin 0.3 AST 57 H ALT 35 Alkaline Phosphatase 360 H Ammonia 25 Troponin I 0.021 C-Reactive Prot, Quant 2.8 H B-Natriuretic Peptide 147 H Total Protein 6.7 Albumin 2.9 L Globulin 3.8 H Albumin/Globulin Ratio 0.8 L Amylase 54 Lipase 32 Tumor Marker AFP 1.60 Procalcitonin 0.40 TSH 0.80 Free T4 1.31 Ur Collection Type Clean Catch Urine Color Lt-Yellow Urine Clarity Clear Urine pH 6.0 Ur Specific [place] 1.023 Urine Protein Negative Urine Glucose (UA) 4+ A Urine Ketones Negative Urine Blood Negative Urine Nitrite Negative Urine Bilirubin Negative Urine Urobilinogen (Auto) Negative Ur Leukocyte Esterase Negative Urine RBC 1 Urine WBC 5 Ur Squamous Epith Cells < 1 Urine Bacteria Rare Ur Culture Indicated? Not Indicated Hepatitis A IgM Ab Non Reactive Hep Bs Antigen Non Reactive Hep B Core IgM Ab Non Reactive Hepatitis C Antibody Non Reactive 05/06/25 06:25 WBC 4.7 RBC 4.07 Hgb 13.0 Hct 40.1 MCV 99 MCH 31.9 MCHC 32.4 RDW Std Deviation 53.6 H Plt Count 89 L Neut % (Auto) 86 H Lymph % (Auto) 12 [place] % (Auto) 1 Eos % (Auto) 0 Baso % (Auto) 0 Neut # (Auto) 4.1 Lymph # (Auto) 0.6 L [place] # (Auto) 0.0 Eos # (Auto) 0.0 Baso # (Auto) 0.0 Immature Gran # (Auto) 0.02 H Absolute Nucleated RBC 0.00 Immature Gran % 0 Nucleated RBC % 0 ESR PT 11.4 INR 1.0 APTT 27.6 D-Dimer Sodium 135 L Potassium 4.8 Chloride 105 Carbon Dioxide 20.6 Anion Gap 9 BUN 26 H Creatinine 1.4 H Estim Creat Clear Calc 32.2 L eGFR 37 L BUN/Creatinine Ratio 19 Glucose 234 H Calculated Osmolality 282 Lactic Acid Calcium 8.7 Corrected Calcium 9.5 Phosphorus 4.2 Magnesium 2.1 Iron TIBC Iron Saturation Unsat Iron Binding Total Bilirubin 0.8 Direct Bilirubin AST 54 H ALT 33 Alkaline Phosphatase 369 H Ammonia Troponin I C-Reactive Prot, Quant B-Natriuretic Peptide Total Protein 7.0 Albumin 3.0 L Globulin 4.0 H Albumin/Globulin Ratio 0.8 L Amylase Lipase Tumor Marker AFP Procalcitonin TSH Free T4 Ur Collection Type Urine Color Urine Clarity Urine pH Ur Specific [place] Urine Protein Urine Glucose (UA) Urine Ketones Urine Blood Urine Nitrite Urine Bilirubin Urine Urobilinogen (Auto) Ur Leukocyte Esterase Urine RBC Urine WBC Ur Squamous Epith Cells Urine Bacteria Ur Culture Indicated? Hepatitis A IgM Ab Hep Bs Antigen Hep B Core IgM Ab Hepatitis C Antibody Quality Measures Quality Measures VTE prophylaxis Advance care planning discussed with:: patient Assessment & Plan Assessment Current Active Medications: Generic Name Dose Route Start Last Admin Trade Name Freq PRN Reason Stop Dose Admin Acetaminophen 650 mg 05/05/25 22:18 Acetaminophen 325 Mg Tablet PO 06/04/25 22:17 Q6H PRN Fever >101.5 Acetaminophen 650 mg 05/05/25 22:23 Acetaminophen 325 Mg Tablet PO 06/04/25 22:22 Q6H PRN PAIN SCALE 1-3 (mild Hydrocodone Bitart/Acetaminophen 1 tab 05/05/25 22:23 Hydrocodone/Apap 5/325 Tablet PO 05/10/25 22:22 Q4HR PRN PAIN SCALE 4-6 (Moderate Atorvastatin Calcium 20 mg 05/06/25 21:00 Atorvastatin Calcium 20 Mg Tablet PO 06/05/25 20:59 HS NIXON Carvedilol 3.125 mg 05/06/25 08:00 05/06/25 08:16 Carvedilol 3.125 Mg Tablet PO 06/05/25 07:59 3.125 mg BIDWM NIXON Administration Donepezil HCl 5 mg 05/06/25 21:00 Donepezil Hcl 5 Mg Tablet PO 06/05/25 20:59 HS NIXON Albumin Human 25 gm in 100 mls @ 100 mls/hr 05/06/25 15:41 Albuminar-25 Ivpb IV 05/06/25 16:39 X1 ONE Levothyroxine Sodium 150 mcg 05/06/25 06:00 05/06/25 05:30 Levothyroxine Sodium 100 Mcg Tablet PO 06/05/25 05:59 150 mcg ACBR NIXON Administration Loratadine 10 mg 05/06/25 09:00 05/06/25 08:16 Loratadine 10 Mg Tablet PO 06/05/25 08:59 10 mg QDAY NIXON Administration Ondansetron HCl 4 mg 05/05/25 22:23 Ondansetron Inj 2 Mg/Ml Inj 2 Ml IVP 06/04/25 22:22 Q6H PRN NAUSEA OR VOMITING Protocol Spironolactone 50 mg 05/05/25 23:10 05/06/25 08:16 Spironolactone 25 Mg Tablet PO 06/04/25 23:09 50 mg QDAY NIXON Administration Plan Maxine Nguyen is a 85F from [facility] with CHF (EF 25?35%), NIDM2, hypothyroidism, dementia, prior bladder CA in remission, and hx squamous cell carcinoma of skin, presenting with progressive abdominal distension, diarrhea, and intermittent vomiting, admitted for large volume ascities, paracentesis and CHF exacerbation. #Anascarca w/ large volume ascities s/p paracentesis 05/06 likely 2/2 #Acute CHF exacerbation #Suspicion of new onset cirrhosis Presented with progressive abdominal distension over 3 weeks with associated diarrhea, intermittent vomiting, and 10 lb weight gain. Abdominal US showed cirrhosis with no focal liver lesions. CTAP shows prominent ascites, cirrhosis, splenomegaly, portosystemic collateral vessels medial to the spleen, and severe bilateral renal scar formation. Low suspicion of bacterial peritonitis with absence of SIRS or abdominal pain. Ddx: Likely multifactorial, CHF exacerbation 2/2 decreased diuretic administration with superimposed possible new onset cirrhosis. No hx of liver disease, hep panel negative, denies alcohol intake or illicit drug use. Possible autoimmune hepatitis vs progressive MAFLD vs cryptogenic Admission albumin low, platelet low, alk phos elevated 360, mild AST elevation BLE US negative for DVT. s/p IR paracentesis 05/06, 6.4L removed, sent for cytology Plan: - Ordered albumin 25g - Start IV Lasix 40 mg daily - F/u peritoneal fluid cytology, SAAG, autoimmune panel - CTM for fever, abdominal pain or leukocytosis - Strict I&Os and daily weights, 2g sodium diet - Hold spirinolactone - Avoid hepatoxic medication - F/u BCx #HFrEF (EF 25?35% 2022) Has history of heart failure and is on GDMT at home. However spironolactone and Lasix are held iso low BP at [facility], which is likely cause of fluid retention and may be contributing to ascites. Has history of moderate pulmonary hypertension. Follows Dr. Conway outpatient. Does not know why she is on ASA 325 mg. Admission BNP 147, no acute pulmonary congestion on CXR. Follows Dr. Conway outpatient Plan: - Continue carvedilol 3.125 mg BID with parameters to hold if SBP <100 - Diurese as above - 2g sodium diet - F/u echo #History squamous cell carcinoma of skin Reports scars on left leg and forehead from prior removal. Plan: - CTM and follow up outpatient #B/l inguinal fold abrasion L>R #RLE wound Daughter reports inguinal fold abrasions are caused from diaper chafing. Right lower extremity wound acquired during transport. Plan: - Wound care #NIDDM Home medications include metformin 500 mg once a day. Plan: - SSI - Hold metformin while inpatient #Hypothyroidism Admission TSH and free T4 within normal limits. Plan: - Continue levothyroxine 150 mcg daily. #Dementia Baseline cognitive impairment per daugher and orientation fluctuates. Takes home donepezil 5 mg QD Plan: - Continue donepezil 5 mg daily. - Delirium precautions. Hospital management: Lines: Peripheral IV Diet: 2g sodium diet Bowel: Senna GI prophylaxis: IV pantoprazole 40 mg QD DVT prophylaxis: SCDs, consider heparin iso paracentesis Disposition: med surg for paracentesis and diuresis CODE STATUS: DNR/DNI Plan of care discussed with attending Dr. Herring, and PGY-2 Dr. Dillon. Lori Van, DO PGY-1 Internal Medicine
--- NOTE | 2025-05-06 16:23 | PC.DIETICIAN ---
[place] preferably, but likes chocolate, and vanilla, also. *Note: For the Ensure plus.
[2025-05-06] MEDS: ALBUMIN HUMAN 25% IVPB 25 GM/100 ML BTL IV (17:37)
[2025-05-06] MEDS: FUROSEMIDE INJ 10 MG/ML 4ML VIAL 40 MG IVP (17:37)
--- NOTE | 2025-05-06 17:43 | PD.IMPROG ---
Documentation for date of: 05/06/25 Subjective Subjective Interval history: Patient underwent a successful ultrasound-guided paracentesis by the IR A total of 6425 fluid was obtained sent for analysis Exam Vital Signs Temp Pulse Resp BP Pulse Ox O2 Del Method 97.6 F 66 17 129/63 97 Room Air 05/06/25 16:00 05/06/25 17:38 05/06/25 16:00 05/06/25 17:38 05/06/25 16:00 05/06/25 16:00 Objective Labs 05/06/25 06:25 05/06/25 06:25 Labs: Laboratory Results - last 24 hr 05/05/25 05/05/25 05/05/25 00:05 19:01 21:29 WBC 5.4 RBC 4.01 Hgb 12.8 Hct 39.9 MCV 100 MCH 31.9 MCHC 32.1 RDW Std Deviation 54.4 H Plt Count 106 L Neut % (Auto) 58 Lymph % (Auto) 20 [place] % (Auto) 10 Eos % (Auto) 11 H Baso % (Auto) 1 Neut # (Auto) 3.1 Lymph # (Auto) 1.1 [place] # (Auto) 0.6 Eos # (Auto) 0.6 H Baso # (Auto) 0.1 Immature Gran # (Auto) 0.01 H Absolute Nucleated RBC 0.00 Immature Gran % 0 Nucleated RBC % 0 ESR 84 H PT 11.2 INR 1.0 APTT 30.7 D-Dimer 2170 H Sodium 138 Potassium 4.4 Chloride 107 Carbon Dioxide 23.1 Anion Gap 8 BUN 26 H Creatinine 1.4 H Estim Creat Clear Calc 32.2 L eGFR 37 L BUN/Creatinine Ratio 19 Glucose 193 H Calculated Osmolality 285 Lactic Acid 1.9 Calcium 8.6 Corrected Calcium 9.5 Phosphorus Magnesium 1.3 L Iron 55 TIBC 223 L Iron Saturation 24 Unsat Iron Binding 168 L Total Bilirubin 0.6 Direct Bilirubin 0.3 AST 57 H ALT 35 Alkaline Phosphatase 360 H Ammonia 25 Troponin I 0.021 C-Reactive Prot, Quant 2.8 H B-Natriuretic Peptide 147 H Total Protein 6.7 Albumin 2.9 L Globulin 3.8 H Albumin/Globulin Ratio 0.8 L Amylase 54 Lipase 32 Tumor Marker AFP 1.60 Procalcitonin 0.40 TSH 0.80 Free T4 1.31 Ur Collection Type Clean Catch Urine Color Lt-Yellow Urine Clarity Clear Urine pH 6.0 Ur Specific [place] 1.023 Urine Protein Negative Urine Glucose (UA) 4+ A Urine Ketones Negative Urine Blood Negative Urine Nitrite Negative Urine Bilirubin Negative Urine Urobilinogen (Auto) Negative Ur Leukocyte Esterase Negative Urine RBC 1 Urine WBC 5 Ur Squamous Epith Cells < 1 Urine Bacteria Rare Ur Culture Indicated? Not Indicated Hepatitis A IgM Ab Non Reactive Hep Bs Antigen Non Reactive Hep B Core IgM Ab Non Reactive Hepatitis C Antibody Non Reactive 05/06/25 06:25 WBC 4.7 RBC 4.07 Hgb 13.0 Hct 40.1 MCV 99 MCH 31.9 MCHC 32.4 RDW Std Deviation 53.6 H Plt Count 89 L Neut % (Auto) 86 H Lymph % (Auto) 12 [place] % (Auto) 1 Eos % (Auto) 0 Baso % (Auto) 0 Neut # (Auto) 4.1 Lymph # (Auto) 0.6 L [place] # (Auto) 0.0 Eos # (Auto) 0.0 Baso # (Auto) 0.0 Immature Gran # (Auto) 0.02 H Absolute Nucleated RBC 0.00 Immature Gran % 0 Nucleated RBC % 0 ESR PT 11.4 INR 1.0 APTT 27.6 D-Dimer Sodium 135 L Potassium 4.8 Chloride 105 Carbon Dioxide 20.6 Anion Gap 9 BUN 26 H Creatinine 1.4 H Estim Creat Clear Calc 32.2 L eGFR 37 L BUN/Creatinine Ratio 19 Glucose 234 H Calculated Osmolality 282 Lactic Acid Calcium 8.7 Corrected Calcium 9.5 Phosphorus 4.2 Magnesium 2.1 Iron TIBC Iron Saturation Unsat Iron Binding Total Bilirubin 0.8 Direct Bilirubin AST 54 H ALT 33 Alkaline Phosphatase 369 H Ammonia Troponin I C-Reactive Prot, Quant B-Natriuretic Peptide Total Protein 7.0 Albumin 3.0 L Globulin 4.0 H Albumin/Globulin Ratio 0.8 L Amylase Lipase Tumor Marker AFP Procalcitonin TSH Free T4 Ur Collection Type Urine Color Urine Clarity Urine pH Ur Specific [place] Urine Protein Urine Glucose (UA) Urine Ketones Urine Blood Urine Nitrite Urine Bilirubin Urine Urobilinogen (Auto) Ur Leukocyte Esterase Urine RBC Urine WBC Ur Squamous Epith Cells Urine Bacteria Ur Culture Indicated? Hepatitis A IgM Ab Hep Bs Antigen Hep B Core IgM Ab Hepatitis C Antibody Impressions Impression: # Advanced portal hypertension leading to intractable ascites Workup for the chronic active hepatitis ordered 2 g sodium diet Will follow the patient I have also ordered CA 125 level AFP is pending Assessment & Plan A&P Narrative # New onset ascites in setting of cirrhotic liver disease etiology uncertain Complete workup ordered for the chronic active hepatitis Ultrasound-guided paracentesis ordered and could not send fluid for complete analysis as well as cytology Other medical problems include Systolic congestive heart failure Dementia hypothyroidism thank you very much for the opportunity to participate in the care of this patient Time Spent With Patient Time: Total time spent is greater than 50% in coordination of care (as documented) at patient's floor/unit and/or counseling patient:
[2025-05-06] MEDS: ATORVASTATIN CALCIUM 20 MG TABLET PO (20:55)
[2025-05-06] MEDS: DONEPEZIL HCL 5 MG TABLET PO (20:55)
[2025-05-07] VITALS (12 sets, daily range): BP systolic 110–128; BP diastolic 53–70; PULSE 60–94; RESP 16–96; TEMP 36.3–36.7; O2SAT 91–96
[2025-05-07] MEDS: LEVOTHYROXINE SODIUM 100 MCG TABLET 150 MCG PO (05:15)
[2025-05-07 06:16] LABS: Basophils # (Auto) 0.0 Thou/mm3 (0.0-0.2); Basophils % (Auto) 1 % (0-2.5); Eosinophils # (Auto) 0.2 Thou/mm3 (0.0-0.5); Eosinophils % (Auto) 3 % (0-10); Hematocrit 34.6 % (36.0-46.0); Hemoglobin 11.3 g/dL (12.0-16.0); Immature Granulocytes Auto 0.04 Thou/mm3 (0.00-0.00); Lymphocytes # (Auto) 1.4 Thou/mm3 (1.0-4.8); Lymphocytes % (Auto) 17 % (10-50); Mean Corpuscular HGB Conc 32.7 g/dl (31.0-37.0); Mean Corpuscular Hemoglobin 32.3 pg (25.0-35.0); Mean Corpuscular Volume 99 fL (80-100); Monocytes # (Auto) 0.7 Thou/mm3 (0.0-0.8); Monocytes % (Auto) 8 % (0-12); Neutrophils # (Auto) 5.9 Thou/mm3 (1.8-7.7); Neutrophils % (Auto) 71 % (37-80); Nucleated Red Blood Cell # 0.00 Thou/mm3 (0.00-0.00); Nucleated Red Blood Cell % 0 /100 WBC (0); Platelet Count 99 Thou/mm3 (140-440); RDW Standard Deviation 53.4 fL (36.4-46.3); Red Blood Count 3.50 Miln/mm3 (4.00-5.20); White Blood Count 8.3 Thou/mm3 (3.6-11.0)
[2025-05-07 06:39] LABS: Alanine Aminotransferase 22 U/L (10-49); Albumin, Serum 2.8 gm/dL (3.4-4.8); Albumin/Globulin Ratio 0.9 (1.2-2.2); Alkaline Phosphatase 267 U/L (46-116); Anion Gap 9 (7-16); Aspartate Amino Transferase 34 U/L (0-34); BUN/Creatinine Ratio 21 Ratio (12-20); Bilirubin,Total 0.5 mg/dL (0.3-1.2); Blood Urea Nitrogen 27 mg/dL (9-23); Calcium 8.5 mg/dL (8.3-10.6); Calcium (Corrected) 9.5 mg/dL (8.5-10.1); Carbon Dioxide 23.2 mMol/L (20.0-31.0); Chloride 106 mMol/L (98-107); Creatinine (Component) 1.3 mg/dL (0.6-1.3); Estimated Creatinine Clearance 34.7 mL/min (>60); Globulin 3.2 gm/dL (2.3-3.5); Glucose 114 mg/dL (74-106); Magnesium 1.9 mg/dL (1.6-2.6); Osmolality,Calculated 281 (275-295); Phosphorous 3.3 mg/dL (2.4-5.1); Potassium 4.5 mMol/L (3.4-5.1); Sodium 138 mMol/L (136-145); Total Protein 6.0 gm/dL (5.7-8.2); eGFR 41 See Note
[2025-05-07] MEDS: FUROSEMIDE INJ 10 MG/ML 4ML VIAL 40 MG IVP (08:25)
--- NOTE | 2025-05-07 10:24 | ESPR_ITS ---
<Statement entered by Aaron Herring MD - 05/11/25 14:37> I reviewed above note and agree with findings and plans. I have also personally examined the patient with medicine team and went over assessment and plan with medical team including internal medicine specialist and resident physician. <Statement entered by Arpita Dillon MD - 05/07/25 13:26> Patient was seen and examined at bedside. I agree on the assessment and plan on this note as documented by resident Russell Olson PGY1. Patient seen and examined at bedside, complaining of itching, did receive a.m. loratadine, was given IV Benadryl and will be started on hydrocortisone 1% cream topical. Patient continues to have 1+ edema, will continue IV diuresis with Lasix for now. Pending echocardiogram, pending workup for underlying decompensated cirrhosis there is high suspicion of cardiac cirrhosis due to underlying poor heart failure with reduced ejection fraction history however patient is on GDMT and has been compliant, follows Dr. Conway outpatient. Patient received paracentesis today, low suspicion of SBP hence fluid studies and Gram staining/culture not obtained. Pending cytology, will start patient on DVT prophylaxis today as well. Continue to hold Aldactone. Case discussed with attending Dr. Herring. Arpita Dillon MD PGY-2 Documentation for date of: 05/07/25 Subjective Subjective Interval history: Overnight events: No acute events overnight. Patient was seen and examined at bedside. AM vitals and labs reviewed. Hepatitis panel negative. SALLIE, antimitochondrial antibodies, and actin IgG antibody pending. Still pending CA125, ceruloplasmin, echocardiogram. Patient had significant itchiness today with new erythema on cheeks. On patient's leg, erythematous spots were noted. Patient has wound on left leg that is covered with bandage. PT referral ordered. Review of systems otherwise negative except for what is mentioned above. Exam Vital Signs Temp Pulse Resp BP Pulse Ox O2 Del Method 97.8 F 80 17 123/59 L 93 L Room Air 05/07/25 08:00 05/07/25 08:25 05/07/25 08:00 05/07/25 08:25 05/07/25 08:00 05/07/25 08:00 Narrative Exam Physical Exam: General: Alert, no acute distress. Diffuse itchiness. Skin: Warm, dry, intact, no obvious rash. Head: Normocephalic, atraumatic. Eye: Normal conjunctiva, PERRL. Cardiovascular: Regular rate and rhythm, no murmur, +S1/S2. Respiratory: Lungs are clear to auscultation, respirations unlabored, no crackles, no wheezing. Gastrointestinal: Soft, nontender, non-distended. No guarding or rebound tenderness. Extremities: No edema, no cyanosis, no clubbing. 2+ radial pulse bilaterally, 2+ pedal pulse bilaterally. Sparse purpura noted on bilateral lower extremities, left leg wound covered by bandage. Neuro: No focal deficits observed. Conversant, moving all extremities. No overt cerebellar signs/incoordination. Psychiatric: Cooperative, appropriate affect. Objective Labs 05/07/25 04:35 05/07/25 04:35 Labs: Laboratory Results - last 24 hr 05/07/25 04:35 WBC 8.3 D RBC 3.50 L Hgb 11.3 L Hct 34.6 L MCV 99 MCH 32.3 MCHC 32.7 RDW Std Deviation 53.4 H Plt Count 99 L Neut % (Auto) 71 Lymph % (Auto) 17 [place] % (Auto) 8 Eos % (Auto) 3 Baso % (Auto) 1 Neut # (Auto) 5.9 Lymph # (Auto) 1.4 [place] # (Auto) 0.7 Eos # (Auto) 0.2 Baso # (Auto) 0.0 Immature Gran # (Auto) 0.04 H Absolute Nucleated RBC 0.00 Immature Gran % 1 H Nucleated RBC % 0 Sodium 138 Potassium 4.5 Chloride 106 Carbon Dioxide 23.2 Anion Gap 9 BUN 27 H Creatinine 1.3 Estim Creat Clear Calc 34.7 L eGFR 41 L BUN/Creatinine Ratio 21 H Glucose 114 H D Calculated Osmolality 281 Calcium 8.5 Corrected Calcium 9.5 Phosphorus 3.3 Magnesium 1.9 Total Bilirubin 0.5 AST 34 ALT 22 Alkaline Phosphatase 267 H D Total Protein 6.0 Albumin 2.8 L Globulin 3.2 Albumin/Globulin Ratio 0.9 L Quality Measures Quality Measures VTE prophylaxis Advance care planning discussed with:: patient and child Assessment & Plan Assessment Current Active Medications: Generic Name Dose Route Start Last Admin Trade Name Freq PRN Reason Stop Dose Admin Acetaminophen 650 mg 05/05/25 22:18 Acetaminophen 325 Mg Tablet PO 06/04/25 22:17 Q6H PRN Fever >101.5 Acetaminophen 650 mg 05/05/25 22:23 Acetaminophen 325 Mg Tablet PO 06/04/25 22:22 Q6H PRN PAIN SCALE 1-3 (mild Hydrocodone Bitart/Acetaminophen 1 tab 05/05/25 22:23 Hydrocodone/Apap 5/325 Tablet PO 05/10/25 22:22 Q4HR PRN PAIN SCALE 4-6 (Moderate Atorvastatin Calcium 20 mg 05/06/25 21:00 05/06/25 20:55 Atorvastatin Calcium 20 Mg Tablet PO 06/05/25 20:59 20 mg HS NIXON Administration Carvedilol 3.125 mg 05/06/25 17:30 05/07/25 08:24 Carvedilol 3.125 Mg Tablet PO 06/05/25 17:29 3.125 mg BIDWM NIXON Administration Donepezil HCl 5 mg 05/06/25 21:00 05/06/25 20:55 Donepezil Hcl 5 Mg Tablet PO 06/05/25 20:59 5 mg HS NIXON Administration Furosemide 40 mg 05/06/25 16:30 05/07/25 08:25 Furosemide Inj 10 Mg/Ml 4ml Vial IVP 06/05/25 16:29 40 mg QDAY NIXON Administration Levothyroxine Sodium 125 mcg/ 150 mcg 05/08/25 06:00 Levothyroxine Sodium 25 mcg PO 06/05/25 05:59 ACBR NIXON Loratadine 10 mg 05/06/25 09:00 05/07/25 08:24 Loratadine 10 Mg Tablet PO 06/05/25 08:59 10 mg QDAY NIXON Administration Ondansetron HCl 4 mg 05/05/25 22:23 Ondansetron Inj 2 Mg/Ml Inj 2 Ml IVP 06/04/25 22:22 Q6H PRN NAUSEA OR VOMITING Protocol Pantoprazole Sodium 40 mg 05/07/25 09:00 05/07/25 08:25 Pantoprazole Inj 40 Mg Vial IVP 06/06/25 08:59 40 mg QDAY NIXON Administration Sennosides 1 tab 05/06/25 16:50 Senna/Docusate Sod 1 Tab Tablet PO 06/05/25 16:49 X1 PRN CONSTIPATION Protocol Spironolactone 50 mg 05/05/25 23:10 05/06/25 08:16 Spironolactone 25 Mg Tablet PO 06/04/25 23:09 50 mg QDAY NIXON Administration Plan Maxine Nguyen is a 85F from [facility] with CHF (EF 25?35%), NIDM2, hypothyroidism, dementia, prior bladder CA in remission, and hx squamous cell carcinoma of skin, presenting with progressive abdominal distension, diarrhea, and intermittent vomiting, admitted for large volume ascities, paracentesis and CHF exacerbation. #Decompensated liver cirrhosis #Anascarca w/ large volume ascities s/p paracentesis 05/06 likely 2/2 #Acute CHF exacerbation #New onset cirrhosis Presented with progressive abdominal distension over 3 weeks with associated diarrhea, intermittent vomiting, and 10 lb weight gain. Abdominal US showed cirrhosis with no focal liver lesions. CTAP shows prominent ascites, cirrhosis, splenomegaly, portosystemic collateral vessels medial to the spleen, and severe bilateral renal scar formation. Low suspicion of bacterial peritonitis with absence of SIRS or abdominal pain. Ddx: Likely multifactorial, CHF exacerbation 2/2 decreased diuretic administration with superimposed possible new onset cirrhosis. No hx of liver disease, hep panel negative, denies alcohol intake or illicit drug use. Possible autoimmune hepatitis vs progressive MAFLD vs cryptogenic Admission albumin low, platelet low, alk phos elevated 360, mild AST elevation BLE US negative for DVT. s/p IR paracentesis 05/06, 6.4L removed, sent for cytology Plan: - Ordered albumin 25g - Continue IV Lasix 40 mg daily - F/u peritoneal fluid cytology, SAAG, autoimmune panel - CTM for fever, abdominal pain or leukocytosis - Strict I&Os and daily weights, 2g sodium diet - Hold spirinolactone - Avoid hepatoxic medication - F/u BCx #HFrEF (EF 25?35% 2022) Has history of heart failure and is on GDMT at home. However spironolactone and Lasix are held iso low BP at [facility], which is likely cause of fluid retention and may be contributing to ascites. Has history of moderate pulmonary hypertension. Follows Dr. Conway outpatient. Does not know why she is on ASA 325 mg. Admission BNP 147, no acute pulmonary congestion on CXR. Follows Dr. Conway outpatient Plan: - Continue carvedilol 3.125 mg BID with parameters to hold if SBP <100 - Diurese as above - 2g sodium diet - F/u echo #History squamous cell carcinoma of skin Reports scars on left leg and forehead from prior removal. Plan: - CTM and follow up outpatient #B/l inguinal fold abrasion L>R #RLE wound Daughter reports inguinal fold abrasions are caused from diaper chafing. Right lower extremity wound acquired during transport. Plan: - Wound care #NIDDM Home medications include metformin 500 mg once a day. Plan: - SSI - Hold metformin while inpatient #Hypothyroidism Admission TSH and free T4 within normal limits. Plan: - Decreased levothyroxine 150 mcg daily to 138 mcg daily to match patient's home dose. #Dementia Baseline cognitive impairment per daugher and orientation fluctuates. Takes home donepezil 5 mg QD Plan: - Continue donepezil 5 mg daily. - Delirium precautions. #Pruritus Patient had significant itchiness on 05/07. ? Continue patient's home loratadine 10 mg daily ? Ordered hydrocortisone ointment ? Gave patient one-time dose of diphenhydramine 12.5 mg for itchiness on 05/07 Hospital management: Lines: Peripheral IV Diet: 2g sodium diet Bowel: Senna GI prophylaxis: IV pantoprazole 40 mg QD DVT prophylaxis: SCDs, consider heparin iso paracentesis Disposition: med surg for paracentesis and diuresis CODE STATUS: DNR/DNI Plan of care discussed with attending Dr. Herring, and PGY-2 Dr. Dillon. Russell Olson, PGY1
[2025-05-07] MEDS: HYDROCORTISONE 1% TOP ×2 (11:33→20:17)
[2025-05-07] MEDS: HYDROcodone/APAP 5/325 TABLET 1 TAB PO ×2 (11:33→19:29)
--- NOTE | 2025-05-07 16:23 | PD.IMPROG ---
Documentation for date of: 05/07/25 Subjective Subjective Interval history: Hepatitis AB and C serologies are negative Rest of the workup is still pending from the lab CT scan of the abdomen and pelvis does show portosystemic collaterals 6400 cc of fluid taken out yesterday by ultrasound at guided paracentesis by the IR Will schedule for upper endoscopy tomorrow for prophylactic band ligation of the esophageal varices in the face of abnormality seen on the CT scan imaging and in the setting of cirrhotic liver disease to cut on patient's mortality and morbidity from a GI bleed Exam Vital Signs Temp Pulse Resp BP Pulse Ox O2 Del Method 97.6 F 81 18 128/70 93 L Room Air 05/07/25 12:00 05/07/25 12:00 05/07/25 12:00 05/07/25 12:00 05/07/25 12:00 05/07/25 12:00 Objective Labs 05/07/25 04:35 05/07/25 04:35 Labs: Laboratory Results - last 24 hr 05/07/25 04:35 WBC 8.3 D RBC 3.50 L Hgb 11.3 L Hct 34.6 L MCV 99 MCH 32.3 MCHC 32.7 RDW Std Deviation 53.4 H Plt Count 99 L Neut % (Auto) 71 Lymph % (Auto) 17 [place] % (Auto) 8 Eos % (Auto) 3 Baso % (Auto) 1 Neut # (Auto) 5.9 Lymph # (Auto) 1.4 [place] # (Auto) 0.7 Eos # (Auto) 0.2 Baso # (Auto) 0.0 Immature Gran # (Auto) 0.04 H Absolute Nucleated RBC 0.00 Immature Gran % 1 H Nucleated RBC % 0 Sodium 138 Potassium 4.5 Chloride 106 Carbon Dioxide 23.2 Anion Gap 9 BUN 27 H Creatinine 1.3 Estim Creat Clear Calc 34.7 L eGFR 41 L BUN/Creatinine Ratio 21 H Glucose 114 H D Calculated Osmolality 281 Calcium 8.5 Corrected Calcium 9.5 Phosphorus 3.3 Magnesium 1.9 Total Bilirubin 0.5 AST 34 ALT 22 Alkaline Phosphatase 267 H D Total Protein 6.0 Albumin 2.8 L Globulin 3.2 Albumin/Globulin Ratio 0.9 L Impressions Impression: # Cirrhotic liver disease etiology uncertain hepatitis AB and C profile is negative # Advanced portal hypertension with intractable ascites and portal systemic collaterals Schedule for an EGD For prophylactic band ligation of esophageal varices Continue 2 g sodium diet N.p.o. midnight tonight except p.o. meds Informed consent obtained for fiberoptic esophagogastroduodenoscopy with possible biopsy possible therapeutic intervention Downtrending hemoglobin hematocrit at 11.3 and 36.6 from 13.0 and 40.1 with a platelet count of 99,000 and pro time INR at 1.0 without much change in the renal function Endoscopy would also be helpful to evaluate the downtrending hemoglobin hematocrit Assessment & Plan A&P Narrative # New onset ascites in setting of cirrhotic liver disease etiology uncertain Complete workup ordered for the chronic active hepatitis Ultrasound-guided paracentesis ordered and could not send fluid for complete analysis as well as cytology Other medical problems include Systolic congestive heart failure Dementia hypothyroidism thank you very much for the opportunity to participate in the care of this patient Time Spent With Patient Time: Total time spent is greater than 50% in coordination of care (as documented) at patient's floor/unit and/or counseling patient:
[2025-05-07] MEDS: DONEPEZIL HCL 5 MG TABLET PO (20:16)
[2025-05-07] MEDS: ATORVASTATIN CALCIUM 20 MG TABLET PO (20:16)
[2025-05-07] MEDS: HEPARIN SOD INJ 5000 UNIT/ML VIAL SC (20:16)
[2025-05-08] VITALS (15 sets, daily range): BP systolic 101–142; BP diastolic 56–84; PULSE 53–69; RESP 12–93; TEMP 36.2–36.4; O2SAT 91–98
[2025-05-08] MEDS: HYDROcodone/APAP 5/325 TABLET 1 TAB PO (03:34)
[2025-05-08 06:12] LABS: Basophils # (Auto) 0.1 Thou/mm3 (0.0-0.2); Basophils % (Auto) 1 % (0-2.5); Eosinophils # (Auto) 0.7 Thou/mm3 (0.0-0.5); Eosinophils % (Auto) 11 % (0-10); Hematocrit 37.6 % (36.0-46.0); Hemoglobin 12.2 g/dL (12.0-16.0); Immature Granulocytes Auto 0.02 Thou/mm3 (0.00-0.00); Lymphocytes # (Auto) 1.6 Thou/mm3 (1.0-4.8); Lymphocytes % (Auto) 24 % (10-50); Mean Corpuscular HGB Conc 32.4 g/dl (31.0-37.0); Mean Corpuscular Hemoglobin 32.5 pg (25.0-35.0); Mean Corpuscular Volume 100 fL (80-100); Monocytes # (Auto) 0.6 Thou/mm3 (0.0-0.8); Monocytes % (Auto) 10 % (0-12); Neutrophils # (Auto) 3.5 Thou/mm3 (1.8-7.7); Neutrophils % (Auto) 55 % (37-80); Nucleated Red Blood Cell # 0.00 Thou/mm3 (0.00-0.00); Nucleated Red Blood Cell % 0 /100 WBC (0); Platelet Count 88 Thou/mm3 (140-440); RDW Standard Deviation 54.7 fL (36.4-46.3); Red Blood Count 3.75 Miln/mm3 (4.00-5.20); White Blood Count 6.4 Thou/mm3 (3.6-11.0)
[2025-05-08] MEDS: FUROSEMIDE INJ 10 MG/ML 4ML VIAL 40 MG IVP (08:50)
[2025-05-08 08:58] LABS: Alanine Aminotransferase 24 U/L (10-49); Albumin, Serum 2.7 gm/dL (3.4-4.8); Albumin/Globulin Ratio 0.8 (1.2-2.2); Alkaline Phosphatase 260 U/L (46-116); Anion Gap 8 (7-16); Aspartate Amino Transferase 39 U/L (0-34); BUN/Creatinine Ratio 21 Ratio (12-20); Bilirubin,Total 0.6 mg/dL (0.3-1.2); Blood Urea Nitrogen 27 mg/dL (9-23); Calcium 8.5 mg/dL (8.3-10.6); Calcium (Corrected) 9.5 mg/dL (8.5-10.1); Carbon Dioxide 23.5 mMol/L (20.0-31.0); Chloride 102 mMol/L (98-107); Creatinine (Component) 1.3 mg/dL (0.6-1.3); Estimated Creatinine Clearance 34.7 mL/min (>60); Globulin 3.3 gm/dL (2.3-3.5); Glucose 104 mg/dL (74-106); Magnesium 1.4 mg/dL (1.6-2.6); Osmolality,Calculated 271 (275-295); Phosphorous 2.6 mg/dL (2.4-5.1); Potassium 4.7 mMol/L (3.4-5.1); Sodium 133 mMol/L (136-145); Total Protein 6.0 gm/dL (5.7-8.2); eGFR 41 See Note
[2025-05-08] MEDS: HYDROCORTISONE 1% TOP ×2 (09:00→20:12)
[2025-05-08] MEDS: Magnesium Sulfate 4 GM Ivpb 4 GM/50 ML BAG IV (10:36)
--- NOTE | 2025-05-08 13:56 | XR_ITS ---
Examination: Abdomen sonogram, complete Date and time of exam: May 08, 2025, 1543 hours INDICATIONS: Diagnosis cirrhosis with history ascites and abdominal distention. Technique: Multiple real-time grayscale transabdominal sonographic images of the abdomen have been obtained. Findings: Absent gallbladder Common bile duct 1.0 cm no stones Pancreatic head 3.3 cm Aorta not enlarged. Liver 13.4 cm with moderate ascites Normal hepatopedal portal venous and Patent IVC Right kidney 9.3 cm renal cortex 1.4 cm Neck and a 9.6 cm in [place] 1.8 cm Spleen 11.6 cm IMPRESSION: Cirrhosis Moderate ascites
--- NOTE | 2025-05-08 14:42 | PC.SS ---
Rounding note: EGD pending. Patient to discharge to [facility] when medically clear.
--- NOTE | 2025-05-08 16:06 | ESPR_ITS ---
<Statement entered by Aaron Herring MD - 05/11/25 14:39> I reviewed above note and agree with findings and plans. I have also personally examined the patient with medicine team and went over assessment and plan with medical team including internal grinder and resident physician. <Statement entered by Aaron Barnes MD - 05/09/25 15:17> Patient is seen at bedside. Patient's daughter is also at bedside, states patient possibly had an allergic reaction to something felt mildly urticaria and petechial rash and will give Benadryl. Patient is also pending EGD today. Abdomen is mildly distended however soft patient denies any shortness of breath or discomfort. Will repeat abdominal ultrasound to monitor for reaccumulation of ascites and will make a decision based on the US if patient will need a repeat paracentesis or not. Patient will likely need to follow-up with IR outpatient through primary care referral if additional paracentesis is once patient is discharged from the hospital. Patient was seen and examined by me personally. I have directly supervised and reviewed documentation by the team resident and agree with its findings. ------- Plan of care was discussed with the attending, Dr. Nevaeh Barnes, PGY-2 Documentation for date of: 05/08/25 Subjective Subjective Interval history: No acute overnight events. Patient seen and examined at bedside. Patient reports feeling well today, is having slight itching all over but denies abdominal pain, chest pain, shortness of breath, urinary symptoms or fever. Has not had a bowel movement today and is NPO for EGD. Planned for EGD today. Continue IV Lasix 40 mg daily. If blood pressure permits consider starting spironolactone. Coreg held due to soft blood pressure. [place] held due to pruritus and hx of allergy to codeine. Follow-up repeat abdominal ultrasound as abdomen seems more distended compared to yesterday. Exam Vital Signs Temp Pulse Resp BP Pulse Ox O2 Del Method 97.4 F 69 18 136/74 H 93 L Room Air 05/08/25 12:00 05/08/25 12:00 05/08/25 12:00 05/08/25 12:00 05/08/25 12:00 05/08/25 12:00 Narrative Exam GENERAL: AOx2, no acute distress HEENT: NC/AT, mucous membranes moist, bilateral sclera anicteric CARDIOVASCULAR: regular rate and rhythm, S1/S2 present, no murmurs appreciated PULMONARY: mildly diminished b/l breath sounds, no rales/rhonchi/wheezes, no crackles ABDOMINAL: soft, non-tender, no rebound/guarding, bowel sounds present, + +distension EXTREMITIES: BLE +2 pitting edema up to hips SKIN: warm and dry, +2 inch wound lateral RLE, +chafing wounds inguinal folds L>R, +purapura on BLE, erythematous patches across lower extremities NEURO: CN II-XII grossly intact, no focal deficits, alert, following commands Objective Labs 05/08/25 04:44 05/08/25 07:39 Labs: Laboratory Results - last 24 hr 05/08/25 05/08/25 04:44 07:39 WBC 6.4 RBC 3.75 L Hgb 12.2 Hct 37.6 MCV 100 MCH 32.5 MCHC 32.4 RDW Std Deviation 54.7 H Plt Count 88 L Neut % (Auto) 55 Lymph % (Auto) 24 [place] % (Auto) 10 Eos % (Auto) 11 H Baso % (Auto) 1 Neut # (Auto) 3.5 Lymph # (Auto) 1.6 [place] # (Auto) 0.6 Eos # (Auto) 0.7 H Baso # (Auto) 0.1 Immature Gran # (Auto) 0.02 H Absolute Nucleated RBC 0.00 Immature Gran % 0 Nucleated RBC % 0 Sodium 133 L Potassium 4.7 Chloride 102 Carbon Dioxide 23.5 Anion Gap 8 BUN 27 H Creatinine 1.3 Estim Creat Clear Calc 34.7 L eGFR 41 L BUN/Creatinine Ratio 21 H Glucose 104 Calculated Osmolality 271 L Calcium 8.5 Corrected Calcium 9.5 Phosphorus 2.6 Magnesium 1.4 L Total Bilirubin 0.6 AST 39 H ALT 24 Alkaline Phosphatase 260 H Total Protein 6.0 Albumin 2.7 L Globulin 3.3 Albumin/Globulin Ratio 0.8 L Quality Measures Quality Measures VTE prophylaxis Advance care planning discussed with:: patient Assessment & Plan Assessment Current Active Medications: Generic Name Dose Route Start Last Admin Trade Name Freq PRN Reason Stop Dose Admin Acetaminophen 650 mg 05/05/25 22:18 Acetaminophen 325 Mg Tablet PO 06/04/25 22:17 Q6H PRN Fever >101.5 Acetaminophen 650 mg 05/05/25 22:23 Acetaminophen 325 Mg Tablet PO 06/04/25 22:22 Q6H PRN PAIN SCALE 1-3 (mild Hydrocodone Bitart/Acetaminophen 1 tab 05/05/25 22:23 05/08/25 03:34 Hydrocodone/Apap 5/325 Tablet PO 05/10/25 22:22 1 tab Q4HR PRN Administration PAIN SCALE 4-6 (Moderate Atorvastatin Calcium 20 mg 05/06/25 21:00 05/07/25 20:16 Atorvastatin Calcium 20 Mg Tablet PO 06/05/25 20:59 20 mg HS NIXON Administration Carvedilol 3.125 mg 05/06/25 17:30 05/07/25 16:59 Carvedilol 3.125 Mg Tablet PO 06/05/25 17:29 3.125 mg BIDWM NIXON Administration Donepezil HCl 5 mg 05/06/25 21:00 05/07/25 20:16 Donepezil Hcl 5 Mg Tablet PO 06/05/25 20:59 5 mg HS NIXON Administration Furosemide 40 mg 05/06/25 16:30 05/08/25 08:50 Furosemide Inj 10 Mg/Ml 4ml Vial IVP 06/05/25 16:29 40 mg QDAY NIXON Administration Heparin Sodium (Porcine) 5,000 unit 05/07/25 21:00 05/07/25 20:16 Heparin Sod Inj 5000 Unit/Ml Vial SC 05/21/25 20:59 5,000 unit Q12HR NIXON Administration Hydrocortisone 0 gm 05/07/25 10:30 05/08/25 09:00 Hydrocortisone Oint 1% 30 Gm Tube TOP 06/06/25 10:29 1 applicatio BID NIXON Administration Levothyroxine Sodium 112 mcg/ 137 mcg 05/08/25 06:00 05/08/25 06:14 Levothyroxine Sodium 25 mcg PO 06/07/25 05:59 Not Given ACBR NIXON Loratadine 10 mg 05/06/25 09:00 05/07/25 08:24 Loratadine 10 Mg Tablet PO 06/05/25 08:59 10 mg QDAY NIXON Administration Ondansetron HCl 4 mg 05/05/25 22:23 Ondansetron Inj 2 Mg/Ml Inj 2 Ml IVP 06/04/25 22:22 Q6H PRN NAUSEA OR VOMITING Protocol Pantoprazole Sodium 40 mg 05/07/25 09:00 05/08/25 08:51 Pantoprazole Inj 40 Mg Vial IVP 06/06/25 08:59 40 mg QDAY NIXON Administration Sennosides 1 tab 05/06/25 16:50 Senna/Docusate Sod 1 Tab Tablet PO 06/05/25 16:49 X1 PRN CONSTIPATION Protocol Plan Maxine Nguyen is a 85F from [facility] with CHF (EF 25?35%), NIDM2, hypothyroidism, dementia, prior bladder CA in remission, and hx squamous cell carcinoma of skin, presenting with progressive abdominal distension, diarrhea, and intermittent vomiting, admitted for large volume ascities, paracentesis and CHF exacerbation. #Decompensated liver cirrhosis #Anascarca w/ large volume ascities s/p paracentesis 05/06 likely 2/2 #Acute CHF exacerbation #New onset cirrhosis Presented with progressive abdominal distension over 3 weeks with associated diarrhea, intermittent vomiting, and 10 lb weight gain. Abdominal US showed cirrhosis with no focal liver lesions. CTAP shows prominent ascites, cirrhosis, splenomegaly, portosystemic collateral vessels medial to the spleen, and severe bilateral renal scar formation. Low suspicion of bacterial peritonitis with absence of SIRS or abdominal pain. Ddx: Likely multifactorial, CHF exacerbation 2/2 decreased diuretic administration with superimposed possible new onset cirrhosis. No hx of liver disease, hep panel negative, denies alcohol intake or illicit drug use. Possible autoimmune hepatitis vs progressive MAFLD vs cryptogenic Admission albumin low, platelet low, alk phos elevated 360, mild AST elevation BLE US negative for DVT. s/p IR paracentesis 05/06, 6.4L removed, sent for cytology, s/p albumin 25 g BCx NGTD Plan: - GI consulted, recs appreciated: EGD today - Continue IV Lasix 40 mg daily - F/u peritoneal fluid cytology, SAAG, autoimmune panel - CTM for fever, abdominal pain or leukocytosis - Strict I&Os and daily weights, 2g sodium diet - Hold spirinolactone, if BP permits, consider restarting iso cirrhosis - Avoid hepatoxic medication - F/u repeat abdominal US #HFrEF (EF 25?35% 2022) Has history of heart failure and is on GDMT at home. However spironolactone and Lasix are held iso low BP at [facility], which is likely cause of fluid retention and may be contributing to ascites. Has history of moderate pulmonary hypertension. Follows Dr. Conway outpatient. Does not know why she is on ASA 325 mg. Admission BNP 147, no acute pulmonary congestion on CXR. Follows Dr. Conway outpatient Plan: - Hold carvedilol 3.125 mg BID due to soft BPs - Diurese as above - 2g sodium diet - F/u echo #History squamous cell carcinoma of skin Reports scars on left leg and forehead from prior removal. Plan: - CTM and follow up outpatient #B/l inguinal fold abrasion L>R #RLE wound Daughter reports inguinal fold abrasions are caused from diaper chafing. Right lower extremity wound acquired during transport. Plan: - Wound care #NIDDM Home medications include metformin 500 mg once a day. Plan: - SSI - Hold metformin while inpatient #Hypothyroidism Admission TSH and free T4 within normal limits. Plan: - Levothyroxine 137 mcg daily #Dementia Baseline cognitive impairment per daugher and orientation fluctuates. Takes home donepezil 5 mg QD Plan: - Continue donepezil 5 mg daily. - Delirium precautions. #Pruritus Patient had significant itchiness on 05/07. Has allergy to codeine per daughter, but unsure of what reaction. s/p benadryl 12.5 mg on 05/07 Plan: - Continue patient's home loratadine 10 mg daily - Hydrocortisone ointment - Hold [place] iso allergy to codiene Hospital management: Lines: Peripheral IV Diet: 2g sodium diet Bowel: Senna GI prophylaxis: IV pantoprazole 40 mg QD DVT prophylaxis: heparin q12 Disposition: med surg for paracentesis and diuresis CODE STATUS: DNR/DNI Plan of care discussed with attending Dr. Herring, and PGY-2 Dr. Barnes. Lori Van, DO Internal Medicine, PGY1
--- NOTE | 2025-05-08 17:13 | SUR.PHASEI ---
1905 RECEIVED PATIENT INTO [facility], REPORT RECEIVED FROM JULIA HAYWOOD, NO S/S OF DISTRESS NOTED AND VITAL SIGNS STABLE.
--- NOTE | 2025-05-08 17:34 | SUR.PHASEI ---
1732 REPORT GIVEN TO GRACIELA HAYWOOD, PATIENT TRANSFERRED BACK TO HER ROOM IN STABLE CONDITION.
[2025-05-08] MEDS: HEPARIN SOD INJ 5000 UNIT/ML VIAL SC (20:05)
[2025-05-08] MEDS: ATORVASTATIN CALCIUM 20 MG TABLET PO (20:05)
[2025-05-08] MEDS: DONEPEZIL HCL 5 MG TABLET PO (20:05)
[2025-05-09 02:58] VITALS: PULSE 52; RESP 20; RESP 94
[2025-05-09 06:32] LABS: Basophils # (Auto) 0.1 Thou/mm3 (0.0-0.2); Basophils % (Auto) 1 % (0-2.5); Eosinophils # (Auto) 0.7 Thou/mm3 (0.0-0.5); Eosinophils % (Auto) 11 % (0-10); Hematocrit 37.9 % (36.0-46.0); Hemoglobin 12.3 g/dL (12.0-16.0); Immature Granulocytes Auto 0.02 Thou/mm3 (0.00-0.00); Lymphocytes # (Auto) 1.4 Thou/mm3 (1.0-4.8); Lymphocytes % (Auto) 23 % (10-50); Mean Corpuscular HGB Conc 32.5 g/dl (31.0-37.0); Mean Corpuscular Hemoglobin 32.0 pg (25.0-35.0); Mean Corpuscular Volume 99 fL (80-100); Monocytes # (Auto) 0.7 Thou/mm3 (0.0-0.8); Monocytes % (Auto) 11 % (0-12); Neutrophils # (Auto) 3.2 Thou/mm3 (1.8-7.7); Neutrophils % (Auto) 54 % (37-80); Nucleated Red Blood Cell # 0.00 Thou/mm3 (0.00-0.00); Nucleated Red Blood Cell % 0 /100 WBC (0); Platelet Count 90 Thou/mm3 (140-440); RDW Standard Deviation 53.6 fL (36.4-46.3); Red Blood Count 3.84 Miln/mm3 (4.00-5.20); White Blood Count 5.9 Thou/mm3 (3.6-11.0)
[2025-05-09 07:13] LABS: Alanine Aminotransferase 25 U/L (10-49); Albumin, Serum 2.8 gm/dL (3.4-4.8); Albumin/Globulin Ratio 0.8 (1.2-2.2); Alkaline Phosphatase 276 U/L (46-116); Anion Gap 8 (7-16); Aspartate Amino Transferase 43 U/L (0-34); BUN/Creatinine Ratio 27 Ratio (12-20); Bilirubin,Total 0.6 mg/dL (0.3-1.2); Blood Urea Nitrogen 35 mg/dL (9-23); Calcium 8.7 mg/dL (8.3-10.6); Calcium (Corrected) 9.7 mg/dL (8.5-10.1); Carbon Dioxide 25.2 mMol/L (20.0-31.0); Chloride 105 mMol/L (98-107); Creatinine (Component) 1.3 mg/dL (0.6-1.3); Estimated Creatinine Clearance 34.7 mL/min (>60); Globulin 3.3 gm/dL (2.3-3.5); Glucose 123 mg/dL (74-106); Magnesium 1.9 mg/dL (1.6-2.6); Osmolality,Calculated 284 (275-295); Phosphorous 2.5 mg/dL (2.4-5.1); Potassium 4.6 mMol/L (3.4-5.1); Sodium 138 mMol/L (136-145); Total Protein 6.1 gm/dL (5.7-8.2); eGFR 41 See Note
[2025-05-09] MEDS: HEPARIN SOD INJ 5000 UNIT/ML VIAL SC (10:01)
[2025-05-09 10:02] VITALS: BP 133/79; PULSE 82
[2025-05-09] MEDS: FUROSEMIDE INJ 10 MG/ML 4ML VIAL 40 MG IVP (10:02)
[2025-05-09] MEDS: HYDROCORTISONE 1% TOP (10:03)
--- NOTE | 2025-05-09 13:40 | PC.SS ---
SUPER[employer]OR [employer] spoke to [facility] to confirm patient will be d/c today. SUPERVISOR [employer] called [facility] who stated that they are unable to find patient account. SUPERVISOR [employer] scheduled transportation for 19:00.
--- NOTE | 2025-05-09 14:21 | PC.SS ---
Rounding note: Patient to be d/c today.
--- NOTE | 2025-05-09 14:49 | PC.SS ---
[employer] informed bedside nurse that ETA is 1900, [employer]ORMAN made Faith at [facility] aware of ETA, [employer] sent updated facesheet via [employer].
--- NOTE | 2025-05-09 14:55 | ESDS_ITS ---
<Statement entered by Aaron Herring MD - 05/12/25 09:12> I reviewed above note and agree with findings and plans. I have also personally examined the patient with medicine team and went over assessment and plan with medical team including security intern and resident physician. <Statement entered by Arpita Dillon MD - 05/09/25 18:27> Patient was seen and examined by me personally. I have reviewed the below documentation by the team resident and agree with its findings. Discharge plan was discussed with the attending, Dr. Herring 85-year-old female with significant past medical history as below, admitted for abdominal distention and fluid overload status. Patient found to be in decompensated cirrhosis, had ascitic tap done 6.4 L removed, underwent EGD showed grade 1 esophageal varices, no acute active bleeding noted. Patient to be discharged on Lasix, GDMT held, obtain echocardiogram outpatient. Patient to follow-up with cardiology and gastroenterology outpatient. Patient stable for discharge, responded well to hospital treatment, schedule outpatient paracentesis with interventional radiology as needed. Arpita Dillon MD Internal Medicine, PGY-2 Planned Discharge Date 05/09/25 DS: Providers Provider Date of admission: 05/05/25 22:16 Primary care physician: Narendra Traore MD ([facility]) Admitting Provider: Helen Stevens MD Attending Provider on Admission: Aaron Herring MD Consults: 05/05/25 21:21 Consult to Gastroenterology Stat Comment: Cirrhosis and ascites Consulting Provider: Radha Mitchell 05/05/25 23:09 Referral Wound Care Routine Comment: 05/06/25 01:58 Referral Registered Dietitian Routine Comment: Attending Provider on DC: Aaron Herring MD Discharging Provider: Aaron Herring MD DS: Diagnosis Problem List Completed Was Problem List Reviewed/Reconciled?: Yes Hospital Course Hospital Course Hospital course: Summary: Maxine Nguyen is a 85F from SNF with CHF (EF 25?35%), NIDM2, hypothyroidism, dementia, prior bladder CA in remission, and hx squamous cell carcinoma of skin, presented to [facility] on 05/05 with progressive abdominal distension, diarrhea, and intermittent vomiting, admitted for large volume ascities, paracentesis, CHF exacerbation and newly diagnosed cirrhosis with ascities. Abdominal imaging, as below, indicates cirrhosis even though patient has had no history of liver disease, hepatitis panel negative and denies alcohol or illicit drug use. Patient's heart failure exacerbation was treated with diuresis and ascities with interventional radiology paracentesis with 6.4 L removed, cytology still pending. Patient will be discharged on Lasix but spironolactone should be held due to potassium being on the higher end of normal limits on this admission. Patient also received endoscopy which showed esophagitis with grade 1 esophageal varices. GI recommends 2 g salt diet and a repeat EGD in 1 year. Patient is recommended to follow-up with an abdominal ultrasound with within 3 to 5 days of admission to determine whether patient will need outpatient therapeutic paracentesis. Patient was also worked up for autoimmune hepatitis and will follow-up with GI outpatient. Also recommend follow-up with binding folder machine for repeat echocardiogram and possible adjustments in GDMT as patient's daughter reported having episodes of orthostatic hypotension at SNF prior to admission. Imaging: Abdominal ultrasound showed cirrhosis with no focal liver lesions CT abdomen pelvis showed prominent ascites, cirrhosis, splenomegaly, portosystemic collateral vessels medial to the spleen, and severe bilateral renal scar formation Discharge Recommendations: - Please take all medications as prescribed - Continue all home medications including aspirin except as below - HOLD carvedilol and Entresto until you follow up with your binding folder machine - CONTINUE Lasix 40 mg daily and take an additional dose if you notice increase in weight, have increased swelling - STOP spironolactone - Please get abdominal ultrasound within the next 3 to 5 days of discharge to reassess ascites - Recommend to follow up with binding folder machine Dr. Conway to adjust GDMT and to repeat echocardiogram - Please follow up with your PCP within one week of discharge - Please follow-up with GI physician within 1 week of discharge - If your symptoms worsen, please seek immediate medical attention and return to your nearest emergency room. - If you do not have a PCP, you may follow up at the [facility] at [facility] [address], [facility] [address], Hospital Diagnoses: #Decompensated liver cirrhosis #Anascarca w/ large volume ascities s/p paracentesis 05/06 likely 2/ #Acute CHF exacerbation #New onset cirrhosis #HFrEF (EF 25?35% 2022) #History squamous cell carcinoma of skin #B/l inguinal fold abrasion L>R #RLE wound #NIDDM #Hypothyroidism #Dementia #Pruritus, resolving Lori Van, DO Internal Medicine PGY-1 Time Spent with Patient Time attestation: Total time spent providing and/or coordinating discharge services: Time spent: Greater than 30 minutes Exam Vital Signs Temp Pulse Resp BP Pulse Ox O2 Del Method O2 Flow Rate 97.6 F 82 20 133/79 H 96 Room Air 3 05/08/25 17:30 05/09/25 10:02 05/09/25 02:58 05/09/25 10:02 05/08/25 17:30 05/08/25 17:30 05/08/25 16:55 Narrative Exam GENERAL: AOx2 at baseline, no acute distress HEENT: NC/AT, mucous membranes moist, bilateral sclera anicteric CARDIOVASCULAR: regular rate and rhythm, S1/S2 present, no murmurs appreciated PULMONARY: CTA bilaterally, no rales/rhonchi/wheezes, no crackles ABDOMINAL: soft, non-tender, no rebound/guarding, bowel sounds present, +distension EXTREMITIES: BLE trace edema up at hips SKIN: warm and dry, +2 inch healing wound lateral RLE, +mild chafing wounds inguinal folds L>R, +purapura on BLE NEURO: CN II-XII grossly intact, no focal deficits, alert, following commands Discharge Plan Plan Patient Disposition: Xfer [facility]illed [facility] Fac (SNF) Patient condition on transfer: Stable Care Plan Goals: -Continue medications as prescribed. -Follow Up with Dr Mitchell Outpatient to follow up cirrhosis workup -Follow up with Dr Conway outpatient, we have held your GDMT, resume per cardiology -Continue Lasix once daily take an additional dose if you notice increase in weight, have increased sweling -Please get abdominal ultrasound within the next 3 to 5 days of discharge to reassess ascites -Follow up with Primary Care Provider in one week -Return to ED if symtoms worsen Prescriptions/Referrals Prescriptions/Med Rec: Continued donepezil 5 mg tablet 5 mg PO DAILY Patient Comments: take 1 tablet by mouth at bedtime desloratadine [Clarinex] 5 mg Tablet 5 mg PO DAILY atorvastatin 20 mg tablet 20 mg PO HS furosemide 20 mg tablet 40 mg PO QAM levothyroxine [Synthroid] 137 mcg tablet 137 mcg PO QAM aspirin 325 mg tablet,delayed release (DR/EC) 325 mg PO QDAY metformin 500 mg tablet extended release 24 hr 500 mg PO QPM Patient Comments: take 1 tablet by mouth every evening with food gabapentin 100 mg capsule 100 mg PO TID 30 Days Qty: 90 2RF Held carvedilol 3.125 mg tablet 3.125 mg PO Q12H Hold Instructions: Resume on 05/16/25. Follow Up With PCP before resuming spironolactone 25 mg tablet 25 mg PO QDAY Hold Instructions: Resume on 05/16/25. Follow Up With PCP before resuming Entresto 97-103 mg tablet 1 tab PO BID Hold Instructions: Resume on 05/16/25. Follow Up With PCP before resuming Discontinued sulfamethoxazole-trimethoprim 400-80 mg tablet 1 tab PO QDAY Referrals: Jesus Conway MD [Physician] - León([facility]),Narendra Bhagat MD [Primary Care Provider] - Radha Mitchell MD [Physician] - Patient/Caregiver Discharge Instructions Discharge Activity: activity as tolerated Education Materials: Paracentesis, Treating Cirrhosis, Understanding Cirrhosis, Coping with Heart Failure Print Language: Paraguayan Stand Alone Forms: [facility] Award Info., Patient Portal Info Letter Discharge Order Discharge Orders: Discharge (Routine); Ordered 05/09/25 Ordered By: Arpita Dillon Quality Discharge Quality Measures VTE prophylaxis
--- NOTE | 2025-05-09 19:41 | PC.NURSE ---
1934 VS: 147/86, 97.8, 76, 16, 96% on room air. Pt alert with confusion at baseline and is able to follow commands. No S/Sx of distress or discomfort. 1940: Pt discharged to [place] with all her belongings. Pt picked up by [facility] Transport staff. AM RN attempted multiple times to get a hold of SNF nurse for report but no response.
--- NOTE | 2025-05-09 22:31 | ESPR_ITS ---
Documentation for date of: 05/09/25 Subjective Subjective Interval history: Late entry for the note Case discussed with the internal medicine team Okay to discharge patient repeat endoscopy in 1 year Exam Vital Signs Temp Pulse Resp BP Pulse Ox O2 Del Method O2 Flow Rate 97.6 F 82 20 133/79 H 96 Room Air 3 05/08/25 17:30 05/09/25 10:02 05/09/25 02:58 05/09/25 10:02 05/08/25 17:30 05/08/25 17:30 05/08/25 16:55 Objective Labs 05/09/25 05:08 05/09/25 05:08 Labs: Laboratory Results - last 24 hr 05/09/25 05:08 WBC 5.9 RBC 3.84 L Hgb 12.3 Hct 37.9 MCV 99 MCH 32.0 MCHC 32.5 RDW Std Deviation 53.6 H Plt Count 90 L Neut % (Auto) 54 Lymph % (Auto) 23 [place] % (Auto) 11 Eos % (Auto) 11 H Baso % (Auto) 1 Neut # (Auto) 3.2 Lymph # (Auto) 1.4 [place] # (Auto) 0.7 Eos # (Auto) 0.7 H Baso # (Auto) 0.1 Immature Gran # (Auto) 0.02 H Absolute Nucleated RBC 0.00 Immature Gran % 0 Nucleated RBC % 0 Sodium 138 Potassium 4.6 Chloride 105 Carbon Dioxide 25.2 Anion Gap 8 BUN 35 H Creatinine 1.3 Estim Creat Clear Calc 34.7 L eGFR 41 L BUN/Creatinine Ratio 27 H Glucose 123 H Calculated Osmolality 284 Calcium 8.7 Corrected Calcium 9.7 Phosphorus 2.5 Magnesium 1.9 Total Bilirubin 0.6 AST 43 H ALT 25 Alkaline Phosphatase 276 H Total Protein 6.1 Albumin 2.8 L Globulin 3.3 Albumin/Globulin Ratio 0.8 L Impressions Impression: 1+ esophageal varices not large enough for band ligation Hypertensive portal gastropathy Plan Avoid NSAIDs Okay to discharge Repeat endoscopy 1 year Assessment & Plan A&P Narrative # New onset ascites in setting of cirrhotic liver disease etiology uncertain Complete workup ordered for the chronic active hepatitis Ultrasound-guided paracentesis ordered and could not send fluid for complete analysis as well as cytology Other medical problems include Systolic congestive heart failure Dementia hypothyroidism thank you very much for the opportunity to participate in the care of this patient Time Spent With Patient Time: Total time spent is greater than 50% in coordination of care (as documented) at patient's floor/unit and/or counseling patient:
[2025-05-16 06:37] LABS: ANA Screen, IFA NEGATIVE (NEGATIVE); Alpha-1-Antitrypsin* 162 mg/dL (83-199); Ceruloplasmin* 37 mg/dL (14-48); Copper* 163 mcg/dL (70-175); Mitochondrial Ab POSITIVE (NEGATIVE); Mitochondrial Ab Titer 1:320 (<1:20)
[2025-05-16 06:38] LABS: Actin Antibody (IgG)* 195 U
== END 2025-05-09 19:41 | disposition skilled nursing facility (03) | DRG 433 ==
LOC: SERX 21:56 → SERHOLD 22:53 → S3NX 05-06 01:34
PROVIDERS: Specialist; Admitting Provider Student in an Organized Health Care Education/Training Program; Emergency Provider Emergency Medicine; PCP Hospitalist; Visit Provider Internal Medicine
PROC: (CPT 43239; principal; 2025-05-08 16:00)
DX: K74.60 Unspecified cirrhosis of liver (principal); I50.22 Chronic systolic (congestive) heart failure; R18.8 Other ascites; I85.10 Secondary esophageal varices without bleeding; K92.2 Gastrointestinal hemorrhage, unspecified; K76.6 Portal hypertension; I11.0 Hypertensive heart disease with heart failure; E11.65 Type 2 diabetes mellitus with hyperglycemia; E03.9 Hypothyroidism, unspecified; F03.90 Unspecified dementia, unspecified severity, without behavioral disturbance, psychotic disturbance, mood disturbance, and anxiety; R16.1 Splenomegaly, not elsewhere classified; M48.061 Spinal stenosis, lumbar region without neurogenic claudication; I27.20 Pulmonary hypertension, unspecified; E83.42 Hypomagnesemia; E88.09 Other disorders of plasma-protein metabolism, not elsewhere classified; Z90.710 Acquired absence of both cervix and uterus; Z88.5 Allergy status to narcotic agent; Z87.440 Personal history of urinary (tract) infections; Z90.49 Acquired absence of other specified parts of digestive tract; Z99.3 Dependence on wheelchair; Z85.828 Personal history of other malignant neoplasm of skin; L29.9 Pruritus, unspecified; K20.90 Esophagitis, unspecified without bleeding; Z85.51 Personal history of malignant neoplasm of bladder; Z79.890 Hormone replacement therapy; Z79.84 Long term (current) use of oral hypoglycemic drugs; Z66 Do not resuscitate; Z79.899 Other long term (current) drug therapy
CPT/HCPCS: 36415; 71045; 71275; 74177; 76700; 80053; 80074; 80307; 81001; 82103; 82105; 82140; 82150; 82248; 82390; 82525; 83540; 83550; 83605; 83690; 83735; 83880; 84100; 84145; 84439; 84443; 84484; 85025; 85379; 85610; 85652; 85730; 86015; 86038; 86140; 86255; 87040; 87400; 87811; 93005; 93970; 96365; 96366; 96375; 99284; A4649; C1729; J1200; J1644; J1938; J2250; J2405; J2470; J2919; J3010; J3475; P9047; Q9967; A9270

== ENCOUNTER 2025-05-28 15:24 | Emergency (ER) | payer MEDICARE, MEDICAID, SELFPAY ==
[2025-05-28 15:39] VITALS: BP 109/75; PULSE 77; RESP 16; TEMP 36.9; O2SAT 100
[2025-05-28 15:40] VITALS: PULSE 62; RESP 16
--- NOTE | 2025-05-28 17:50 | PD.EDADULT ---
ED General RME/HPI General Chief complaint: Abdominal Pain Stated complaint: ABD PAIN Time Seen by Provider: 05/28/25 16:02 Arrival date/time: 05/28/25 15:24 Limitations: no limitations RME / HPI RME / HPI narrative: 85 year old female with history of dementia, HFrEF (EF 25?30% 12/2022), diabetes, hypothyroidism, recurrent UTIs, bladder cancer in remission presents to the ED requesting paracentesis today. Patient reports abdominal distention and shortness of breath. Otherwise no other associated symptoms reported. Denies fevers, chills, sweats, chest pain, n/v/d, or urinary symptoms. Related Data Home Medications ?Medication ?Instructions ?Recorded ?Confirmed desloratadine 5 mg tablet 5 mg PO DAILY 01/26/23 05/06/25 (Clarinex) donepezil 5 mg tablet 5 mg PO DAILY 01/26/23 05/06/25 aspirin 325 mg tablet,delayed 325 mg PO QDAY 06/07/24 05/06/25 release levothyroxine 137 mcg tablet 137 mcg PO QAM 06/07/24 05/06/25 (Synthroid) metformin 500 mg tablet,extended 500 mg PO QPM 06/07/24 05/06/25 release 24 hr sacubitril 97 mg-valsartan 103 mg 1 tab PO BID 06/07/24 05/06/25 tablet (Entresto) Held on 05/09/25. Instructions: Resume on 05/16/25. Follow Up With PCP before resuming spironolactone 25 mg tablet 25 mg PO QDAY 06/07/24 05/06/25 Held on 05/09/25. Instructions: Resume on 05/16/25. Follow Up With PCP before resuming atorvastatin 20 mg tablet 20 mg PO HS 05/06/25 05/06/25 carvedilol 3.125 mg tablet 3.125 mg PO Q12H 05/06/25 05/06/25 Held on 05/09/25. Instructions: Resume on 05/16/25. Follow Up With PCP before resuming furosemide 20 mg tablet 40 mg PO QAM 05/06/25 05/06/25 Previous Rx's ?Medication ?Instructions ?Recorded gabapentin 100 mg capsule 100 mg PO TID 30 days #90 caps 07/19/24 Allergies Allergy/AdvReac Type Severity Reaction Status Date / Time codeine Allergy Severe HOT FLASHES Verified 06/07/24 12:25 UNKNOWN ANTIBIOTIC Allergy Severe Hives Uncoded 06/07/24 12:25 Review of Systems Review of Systems Systems Reviewed: All systems reviewed, normal except as documented Past Medical History Past Medical History NEUROLOGIC: Positive Dementia CARDIAC: Positive Congestive Heart Failure and Hypertension RESPIRATORY: Positive Chronic Obstructive Pulmonary Disease (COPD) MUSCULOSKELETAL: Positive Arthritis ENT: Positive Cataracts ENDOCRINE: Positive Diabetes Mellitus Type 2 and Hypothyroidism OTHER HISTORY: Positive Chemotherapy, Radiation Therapy and Cancer Surgical History SURGICAL: Positive Hysterectomy Social History SMOKING STATUS: Never smoker SUBSTANCE USE: does not use ED Exam General Limitations: Present no limitations General appearance: Present alert and in no apparent distress Head Head exam: Present atraumatic, normocephalic and normal inspection Eye Eye exam: Present normal appearance, PERRL and EOMI ENT ENT exam: Present normal exam, normal oropharynx and mucous membranes moist Neck Neck exam: Present normal inspection, full ROM and trachea midline Chest Chest inspection: Present normal inspection and symmetric chest wall rise Respiratory Respiratory exam: Present normal lung sounds bilaterally Cardiovascular Cardiovascular exam: Present regular rate, normal rhythm and normal heart sounds Abdominal Exam Abdominal exam: Present soft, distention (+fluid wave ) and normal bowel sounds Extremities Exam Extremities exam: Present full ROM and other (bilateral lower extremity trace to 1+ edema ) Back Exam Back exam: Present normal inspection and full ROM Neurological Exam Neurological exam: Present alert, oriented X3 and CN II-XII intact Psychiatric Psychiatric exam: Present normal affect and normal mood Skin Skin exam: Present warm, dry, intact and normal color Course Quality Measures none Vital Signs Vital signs: Vital Signs Temperature 98.5 F 05/28/25 15:39 Pulse Rate 77 05/28/25 15:39 Respiratory Rate 16 05/28/25 15:39 Blood Pressure 109/75 05/28/25 15:39 Pulse Oximetry (%) 100 05/28/25 15:39 Oxygen Delivery Method Room Air 05/28/25 15:39 Pulse ox is 100% on room air which is adequate. Discharge Plan Plan Patient Disposition: HOME (Self Care) Patient condition on transfer: Stable Prescriptions/Referrals Prescriptions/Med Rec: No Action donepezil 5 mg tablet 5 mg PO DAILY Patient Comments: take 1 tablet by mouth at bedtime desloratadine [Clarinex] 5 mg Tablet 5 mg PO DAILY atorvastatin 20 mg tablet 20 mg PO HS carvedilol 3.125 mg tablet 3.125 mg PO Q12H furosemide 20 mg tablet 40 mg PO QAM levothyroxine [Synthroid] 137 mcg tablet 137 mcg PO QAM spironolactone 25 mg tablet 25 mg PO QDAY aspirin 325 mg tablet,delayed release (DR/EC) 325 mg PO QDAY metformin 500 mg tablet extended release 24 hr 500 mg PO QPM Patient Comments: take 1 tablet by mouth every evening with food Entresto 97-103 mg tablet 1 tab PO BID gabapentin 100 mg capsule 100 mg PO TID 30 Days Qty: 90 2RF Problem List Clinical Impression: Ascites, Cirrhosis Patient/Caregiver Discharge Instructions Discharge Activity: activity as tolerated Education Materials: ED Ascites, ED Cirrhosis Additional Instructions: Return to the ER Friday for interventional radiology for paracentesis. Discussed with the family. Print Language: Dominican Stand Alone Forms: [facility] Award Info., Patient Portal Info Letter MDM Narrative [facility] hospital course: Yuliet Brady am scribing for and in the presence of Dr. Adler. Patient presented to the ED requesting paracentesis. Patient was made aware we do not have IR available on the s and Friday due to the holiday. Patient was instructed to return Friday. Clinical Information Provided by patient Medical Records Reviewed [facility] Meds/Rx Considered, not Ordered None Labs/Rad/Tests considered, not Ordered None Chronic Illness/Social Conditions which may negatively complicate care or outcome(s)-explain: Liver disease EKG EKG not done Lab Interpretation Labs: none Imaging Imaging interpretation: none Medication Administration(s) none Diagnosis Most likely dx, and/or detailed dx discussion: Ascites Cirrhosis Dispositon Disposition: Discharge Home
[2025-05-28 18:37] VITALS: BP 122/93; PULSE 82; RESP 19; TEMP 36.8; O2SAT 97
[2025-05-28 19:00] VITALS: BP 139/73; PULSE 89; RESP 18; TEMP 37.1; O2SAT 99
== END 2025-05-28 19:00 | disposition home or self-care (01) ==
LOC: SERX 17:19
PROVIDERS: Emergency Provider Family Medicine; PCP Hospitalist
DX: K74.60 Unspecified cirrhosis of liver (principal); R18.8 Other ascites
CPT/HCPCS: 99281

== ENCOUNTER 2025-05-31 07:14 | Emergency (ER) | payer MEDICARE, MEDICAID, SELFPAY ==
[2025-05-31 07:25] VITALS: PULSE 86; O2SAT 94; BMI 28.2
[2025-05-31 07:28] VITALS: BP 132/88; PULSE 72; RESP 18; TEMP 36.6; O2SAT 97
[2025-05-31 07:49] LABS: Basophils # (Auto) 0.1 Thou/mm3 (0.0-0.2); Basophils % (Auto) 2 % (0-2.5); Eosinophils # (Auto) 1.0 Thou/mm3 (0.0-0.5); Eosinophils % (Auto) 16 % (0-10); Hematocrit 40.4 % (36.0-46.0); Hemoglobin 12.8 g/dL (12.0-16.0); Immature Granulocytes Auto 0.01 Thou/mm3 (0.00-0.00); Lymphocytes # (Auto) 1.3 Thou/mm3 (1.0-4.8); Lymphocytes % (Auto) 22 % (10-50); Mean Corpuscular HGB Conc 31.7 g/dl (31.0-37.0); Mean Corpuscular Hemoglobin 31.9 pg (25.0-35.0); Mean Corpuscular Volume 101 fL (80-100); Monocytes # (Auto) 0.7 Thou/mm3 (0.0-0.8); Monocytes % (Auto) 11 % (0-12); Neutrophils # (Auto) 3.1 Thou/mm3 (1.8-7.7); Neutrophils % (Auto) 50 % (37-80); Nucleated Red Blood Cell # 0.00 Thou/mm3 (0.00-0.00); Nucleated Red Blood Cell % 0 /100 WBC (0); Platelet Count 137 Thou/mm3 (140-440); RDW Standard Deviation 58.8 fL (36.4-46.3); Red Blood Count 4.01 Miln/mm3 (4.00-5.20); White Blood Count 6.2 Thou/mm3 (3.6-11.0)
--- NOTE | 2025-05-31 07:52 | XR_ITS ---
Examination: Ultrasound-guided paracentesis Abdominal sonogram limited Date and time of exam: May 31, 2025 1133 hours INDICATIONS: Cirrhosis, increasing abdominal distention this week Informed consent provided. A timeout was completed verifying correct patient, procedure, site, positioning, and special adequate movement if applicable. Technique: Multiple sonographic images of the abdomen have been obtained. Appropriate area for paracentesis was marked. Local anesthesia is obtained with 1% lidocaine. Yueh catheter is successfully introduced. Findings: Abdominal sonographic images demonstrate sufficient ascitic fluid for paracentesis. After placing the Yueh catheter, 7150 cc of fluid were successfully removed. During and after completion of the procedure the patient appear in satisfactory and stable condition with no complications observed. Estimated blood loss 0 cc Impression: Abdominal ascites Successful ultrasound-guided paracentesis as described above
[2025-05-31 08:04] LABS: Alanine Aminotransferase 42 U/L (10-49); Albumin, Serum 3.1 gm/dL (3.4-4.8); Albumin/Globulin Ratio 0.8 (1.2-2.2); Alkaline Phosphatase 334 U/L (46-116); Anion Gap 10 (7-16); Aspartate Amino Transferase 61 U/L (0-34); BUN/Creatinine Ratio 27 Ratio (12-20); Bilirubin,Total 0.7 mg/dL (0.3-1.2); Blood Urea Nitrogen 40 mg/dL (9-23); Calcium 9.2 mg/dL (8.3-10.6); Calcium (Corrected) 9.9 mg/dL (8.5-10.1); Carbon Dioxide 27.2 mMol/L (20.0-31.0); Chloride 108 mMol/L (98-107); Creatinine (Component) 1.5 mg/dL (0.6-1.3); Estimated Creatinine Clearance 29.7 mL/min (>60); Globulin 3.8 gm/dL (2.3-3.5); Glucose 122 mg/dL (74-106); Osmolality,Calculated 299 (275-295); Potassium 4.1 mMol/L (3.4-5.1); Sodium 145 mMol/L (136-145); Total Protein 6.9 gm/dL (5.7-8.2); eGFR 34 See Note
[2025-05-31 09:05] LABS: INR 1.0 (0.9-1.3); Partial Thromboplastin Time 28.2 Seconds (22.0-36.0); Prothrombin Time 10.9 Seconds (9.0-12.2)
[2025-05-31 09:38] VITALS: BP 135/68; PULSE 83; RESP 19; O2SAT 98
--- NOTE | 2025-05-31 09:46 | PD.EDABDPN ---
ED Abdominal Pain RME/HPI General Chief Complaint: Abdominal Pain Stated complaint: ABDOMINAL DISTENTION Time seen by provider: 05/31/25 07:52 Arrival date/time: 05/31/25 07:14 RME / HPI RME / HPI narrative: 85 year old female with history of dementia, HFrEF (EF 25?30% 12/2022), diabetes, hypothyroidism, recurrent UTIs, bladder cancer in remission, and ascites presents to the ED requesting paracentesis today. Patient states she was evaluated here 3 days ago and advised to return today for a paracentesis. In the ED, only complains of abdominal distention; otherwise has no other complaints. Denies fevers, chills, sweats, chest pain, n/v/d, or urinary symptoms. Related Data Home Medications ?Medication ?Instructions ?Recorded ?Confirmed desloratadine 5 mg tablet 5 mg PO DAILY 01/26/23 05/06/25 (Clarinex) donepezil 5 mg tablet 5 mg PO DAILY 01/26/23 05/06/25 aspirin 325 mg tablet,delayed 325 mg PO QDAY 06/07/24 05/06/25 release levothyroxine 137 mcg tablet 137 mcg PO QAM 06/07/24 05/06/25 (Synthroid) metformin 500 mg tablet,extended 500 mg PO QPM 06/07/24 05/06/25 release 24 hr sacubitril 97 mg-valsartan 103 mg 1 tab PO BID 06/07/24 05/06/25 tablet (Entresto) Held on 05/09/25. Instructions: Resume on 05/16/25. Follow Up With PCP before resuming spironolactone 25 mg tablet 25 mg PO QDAY 06/07/24 05/06/25 Held on 05/09/25. Instructions: Resume on 05/16/25. Follow Up With PCP before resuming atorvastatin 20 mg tablet 20 mg PO HS 05/06/25 05/06/25 carvedilol 3.125 mg tablet 3.125 mg PO Q12H 05/06/25 05/06/25 Held on 05/09/25. Instructions: Resume on 05/16/25. Follow Up With PCP before resuming furosemide 20 mg tablet 40 mg PO QAM 05/06/25 05/06/25 Previous Rx's ?Medication ?Instructions ?Recorded gabapentin 100 mg capsule 100 mg PO TID 30 days #90 caps 07/19/24 Allergies Allergy/AdvReac Type Severity Reaction Status Date / Time codeine Allergy Severe HOT FLASHES Verified 05/31/25 07:28 UNKNOWN ANTIBIOTIC Allergy Severe Hives Uncoded 06/07/24 12:25 Review of Systems Review of Systems Systems Reviewed: All systems reviewed, normal except as documented Past Medical History Past Medical History NEUROLOGIC: Positive Dementia CARDIAC: Positive Congestive Heart Failure and Hypertension RESPIRATORY: Positive Chronic Obstructive Pulmonary Disease (COPD) MUSCULOSKELETAL: Positive Arthritis ENT: Positive Cataracts ENDOCRINE: Positive Diabetes Mellitus Type 2 and Hypothyroidism OTHER HISTORY: Positive Chemotherapy, Radiation Therapy and Cancer Surgical History SURGICAL: Positive Hysterectomy Social History SMOKING STATUS: Former smoker SUBSTANCE USE: does not use ED Exam Narrative Physical exam: GENERAL APPEARANCE: alert and oriented x 4, well-developed, well-nourished, mild tachypnea HEENT: Normocephalic, atraumatic; pupils equal, round, reactive to light; EOMI; mucous membranes pink, moist; oropharynx clear NECK: Supple LUNGS: CTABL; no wheezes, no rales, no rhonchi HEART: Regular rate, regular rhythm; normal S1, S2; no murmurs ABDOMEN: distended; normal BS; soft, no tenderness, no guarding, no rebound; no masses, no organomegaly, no hernia BACK: no CVA tenderness EXTREMITIES: atraumatic; no edema NEUROLOGIC: awake; alert and oriented x4; cranial nerves II-XII grossly intact; no focal sensory or motor deficits PSYCHIATRIC: appropriate mood and affect SKIN: warm, dry, normal color; no rashes Course Quality Measures none Orders Category Date Time Status US paracentesis abd w/image Stat Exams 05/31/25 07:52 Completed CBC Stat Lab 05/31/25 07:37 Completed CMP [Comprehensive Metabolic Panel] Stat Lab 05/31/25 07:37 Completed PTT [Partial Thromboplastin Time] Stat Lab 05/31/25 07:37 Completed Prothrombin Time with INR Stat Lab 05/31/25 07:37 Completed Albumin Human 25% Ivpb [Albuminar-25 Ivpb] Med 05/31/25 13:36 Ordered 12.5 gm in 50 ml IV X1 Albumin Human 25% Ivpb [Albuminar-25 Ivpb] Med 05/31/25 13:36 Ordered 12.5 gm in 50 ml IV X1 Albumin Human 25% Ivpb [Albuminar-25 Ivpb] Med 05/31/25 13:36 Ordered 12.5 gm in 50 ml IV X1 Albumin Human 25% Ivpb [Albuminar-25 Ivpb] Med 05/31/25 13:36 Ordered 12.5 gm in 50 ml IV X1 Vital Signs Vital signs: Vital Signs Temperature 97.8 F 05/31/25 07:28 Pulse Rate 72 05/31/25 07:28 Respiratory Rate 18 05/31/25 07:28 Blood Pressure 132/88 H 05/31/25 07:28 Pulse Oximetry (%) 97 05/31/25 07:28 Oxygen Delivery Method Room Air 05/31/25 07:28 Pulse ox is 97% on room air which is adequate. Abdominal Pain MDM MDM Narrative MDM Narrative:: Yuliet Brady am scribing for and in the presence of Dr. Madsen. Patient had ~7400cc removed during paracentesis. Ordered 50mg of Albumin. Patient will be discharged home. Patient data External records reviewed:: [facility] previous records (I reviewed ED Visit on 05/28/2025 ) Clinical information provided by:: patient Social determinants that could affect healthcare access:: none Patient has the following chronic illnesses:: dementia, HFrEF (EF 25?30% 12/2022), diabetes, hypothyroidism, recurrent UTIs, bladder cancer in remission, and ascites How is presenting disease/condition affected by chronic disease/condition?: exacerbated by Evaluation data The following diagnostics were reviewed and interpreted by me:: lab results and radiology exam(s) Lab and/or radiology exams considered but not ordered:: None Interpretation Summary: Ordering Physician: Frieda Madsen MD Date of Service: 05/31/25 Procedure(s): US paracentesis abd w/image Accession Number(s): [id number] cc: Hill West MD; NO PRIMARY/FAMILY,PHYSICIAN; Frieda Madsen MD~ Examination: Ultrasound-guided paracentesis Abdominal sonogram limited Date and time of exam: May 31, 2025 1133 hours INDICATIONS: Cirrhosis, increasing abdominal distention this week Informed consent provided. A timeout was completed verifying correct patient, procedure, site, positioning, and special adequate movement if applicable. Technique: Multiple sonographic images of the abdomen have been obtained. Appropriate area for paracentesis was marked. Local anesthesia is obtained with 1% lidocaine. Yueh catheter is successfully introduced. Findings: Abdominal sonographic images demonstrate sufficient ascitic fluid for paracentesis. After placing the Yueh catheter, 7150 cc of fluid were successfully removed. During and after completion of the procedure the patient appear in satisfactory and stable condition with no complications observed. Estimated blood loss 0 cc Impression: Abdominal ascites Successful ultrasound-guided paracentesis as described above Dictated By: Hill West MD Signed By: <Electronically signed by Hill West MD in OV> 05/31/25 1249 Medications / Prescriptions Medications or Prescriptions considered but not ordered:: None Medication administrations:: Medication Administration History Albumin Human (Albuminar-25 Ivpb) 12.5 gm in 50 mls @ 50 mls/hr IV X1 ONE Stop: 05/31/25 14:35 Albumin Human (Albuminar-25 Ivpb) 12.5 gm in 50 mls @ 50 mls/hr IV X1 ONE Stop: 05/31/25 14:35 Albumin Human (Albuminar-25 Ivpb) 12.5 gm in 50 mls @ 50 mls/hr IV X1 ONE Stop: 05/31/25 14:35 Albumin Human (Albuminar-25 Ivpb) 12.5 gm in 50 mls @ 50 mls/hr IV X1 ONE Stop: 05/31/25 14:35 See above Consultations Consultation(s) initiated? (list below): No Diagnosis Differential diagnosis abdominal pain: abdominal pain and other (ascites) Most likely diagnosis given after review of the tests above:: Ascites S/p paracentesis Admission Indicated Admission indicated?: not indicated Admission Request Was there a request for admission?: No Disposition Plan Disposition Plan: Discharge Discharge Attestation Discharge Attestation: The patient and all family members were given an opportunity to ask questions and understood the discharge instructions. Discharge instructions specifically effects, indications for sooner follow up or return to the emergency department, and the expected course of current diagnosis. Patient condition: Stable Discharge Plan Plan Patient Disposition: HOME (Self Care) Prescriptions/Referrals Prescriptions/Med Rec: No Action donepezil 5 mg tablet 5 mg PO DAILY Patient Comments: take 1 tablet by mouth at bedtime desloratadine [Clarinex] 5 mg Tablet 5 mg PO DAILY atorvastatin 20 mg tablet 20 mg PO HS carvedilol 3.125 mg tablet 3.125 mg PO Q12H furosemide 20 mg tablet 40 mg PO QAM levothyroxine [Synthroid] 137 mcg tablet 137 mcg PO QAM spironolactone 25 mg tablet 25 mg PO QDAY aspirin 325 mg tablet,delayed release (DR/EC) 325 mg PO QDAY metformin 500 mg tablet extended release 24 hr 500 mg PO QPM Patient Comments: take 1 tablet by mouth every evening with food Entresto 97-103 mg tablet 1 tab PO BID gabapentin 100 mg capsule 100 mg PO TID 30 Days Qty: 90 2RF Referrals: No Primary/Family,Physician [Primary Care Provider] - In 1 week Problem List Clinical Impression: Ascites, Status post abdominal paracentesis Patient/Caregiver Discharge Instructions Education Materials: Paracentesis Print Language: Luxembourgish Stand Alone Forms: [facility] Award Info., Patient Portal Info Letter
[2025-05-31 11:00] VITALS: BP 105/64; PULSE 72; RESP 21; TEMP 36.8; O2SAT 93
--- NOTE | 2025-05-31 11:51 | PC.NURSE ---
PATIENT TAKEN TO ULTRASOUND FOR PARACENTESIS.
[2025-05-31 13:21] VITALS: BP 137/76; PULSE 71; RESP 20; TEMP 36.8; O2SAT 96
[2025-05-31] MEDS: ALBUMIN HUMAN 25% IVPB 25 GM/100 ML BTL IV ×2 (13:57→15:04)
[2025-05-31 17:02] VITALS: BP 142/87; PULSE 62; RESP 19; TEMP 37; O2SAT 96
== END 2025-05-31 17:04 | disposition home or self-care (01) ==
PROVIDERS: Emergency Provider Emergency Medicine
DX: K74.60 Unspecified cirrhosis of liver (principal); R18.8 Other ascites
CPT/HCPCS: 49083; 36415; 80053; 85025; 85610; 85730; 96365; 96366; 99284; C1729; P9047

== ENCOUNTER → 2025-06-16 | Outpatient (CLI) | payer MEDICARE, MEDICAID, SELFPAY ==
--- NOTE | 2025-06-16 09:00 | XR_ITS ---
Examination: Ultrasound-guided paracentesis Abdominal sonogram limited Date and time of exam: June 16, 2025 0937 hours INDICATIONS: Cirrhosis, increasing ascites and abdominal distention this week Informed consent provided. A timeout was completed verifying correct patient, procedure, site, positioning, and special adequate movement if applicable. Technique: Multiple sonographic images of the abdomen have been obtained. Appropriate area for paracentesis was marked. Local anesthesia is obtained with 1% lidocaine. Yueh catheter is successfully introduced. Findings: Abdominal sonographic images demonstrate sufficient ascitic fluid for paracentesis. After placing the Yueh catheter, 9050 cc of fluid were successfully removed. During and after completion of the procedure the patient appear in satisfactory and stable condition with no complications observed. Estimated blood loss 0 cc Impression: Abdominal ascites Successful ultrasound-guided paracentesis as described above
[2025-06-16] MEDS: ALBUMIN HUMAN 25% IVPB 25 GM/100 ML BTL IV ×2 (11:11→11:58)
== END | disposition home or self-care (01) ==
PROVIDERS: PCP Hospitalist; Referring Provider Hospitalist; Visit Provider Hospitalist
DX: K70.31 Alcoholic cirrhosis of liver with ascites (principal)
CPT/HCPCS: 49083; C1729; P9047

== ENCOUNTER → 2025-06-30 | Outpatient (CLI) | payer MEDICARE, MEDICAID, SELFPAY ==
--- NOTE | 2025-06-30 09:30 | XR_ITS ---
Examination: Ultrasound-guided paracentesis Abdominal sonogram limited Date and time of exam: June 30 2025, 0905 hours INDICATIONS: Cirrhosis Informed consent provided. A timeout was completed verifying correct patient, procedure, site, positioning, and special adequate movement if applicable. Technique: Multiple sonographic images of the abdomen have been obtained. Appropriate area for paracentesis was marked. Local anesthesia is obtained with 1% lidocaine. Yueh catheter is successfully introduced. Findings: Abdominal sonographic images demonstrate sufficient ascitic fluid for paracentesis. After placing the Yueh catheter, 7650 cc of fluid were successfully removed. During and after completion of the procedure the patient appear in satisfactory and stable condition with no complications observed. Estimated blood loss 0 cc Impression: Abdominal ascites Successful ultrasound-guided paracentesis as described above
[2025-06-30] MEDS: ALBUMIN HUMAN-KJDA 25% IVPB 25 GM/100 ML BTL IV (11:18)
== END | disposition home or self-care (01) ==
PROVIDERS: PCP Hospitalist; Referring Provider Hospitalist; Visit Provider Radiology Diagnostic Radiology
DX: K70.31 Alcoholic cirrhosis of liver with ascites (principal)
CPT/HCPCS: 49083; P9047

== ENCOUNTER → 2025-07-11 | Outpatient (CLI) | payer MEDICARE, MEDICAID, SELFPAY ==
--- NOTE | 2025-07-11 11:00 | XR_ITS ---
Examination: Ultrasound-guided paracentesis Abdominal sonogram limited Date and time of exam: 07/11/2025, 1:30 p.m. INDICATION: Ascites Informed consent provided. A timeout was completed verifying correct patient, procedure, site, positioning, and special adequate movement if applicable. Technique: Multiple sonographic images of the abdomen have been obtained. Appropriate area for paracentesis was marked. Local anesthesia is obtained with 1% lidocaine. Yueh catheter is successfully introduced. Findings: Abdominal sonographic images demonstrate sufficient ascitic fluid for paracentesis. After placing the Yueh catheter, 7650 cc of fluid were successfully removed. During and after completion of the procedure the patient appear in satisfactory and stable condition with no complications observed. Estimated blood loss 0 cc Impression: Abdominal ascites Successful ultrasound-guided paracentesis as described above
[2025-07-11] MEDS: ALBUMIN HUMAN-KJDA 25% IVPB 25 GM/100 ML BTL IV ×2 (14:52→15:35)
== END | disposition home or self-care (01) ==
PROVIDERS: PCP Hospitalist; Referring Provider Hospitalist; Visit Provider Radiology Diagnostic Radiology
DX: K70.31 Alcoholic cirrhosis of liver with ascites (principal)
CPT/HCPCS: 49083; C1729; P9047

== ENCOUNTER → 2025-07-18 | Outpatient (CLI) | payer MEDICARE, MEDICAID, SELFPAY ==
--- NOTE | 2025-07-18 11:30 | XR_ITS ---
Examination: Ultrasound-guided paracentesis Abdominal sonogram limited Date and time of exam: July 18, 2025, 1227 hours INDICATIONS: Cirrhosis, increasing ascites abdominal distention history Informed consent provided. A timeout was completed verifying correct patient, procedure, site, positioning, and special adequate movement if applicable. Technique: Multiple sonographic images of the abdomen have been obtained. Appropriate area for paracentesis was marked. Local anesthesia is obtained with 1% lidocaine. Yueh catheter is successfully introduced. Findings: Abdominal sonographic images demonstrate sufficient ascitic fluid for paracentesis. After placing the Yueh catheter, 4800 cc of fluid were successfully removed. During and after completion of the procedure the patient appear in satisfactory and stable condition with no complications observed. Estimated blood loss 0 cc Impression: Abdominal ascites Successful ultrasound-guided paracentesis as described above
== END | disposition home or self-care (01) ==
PROVIDERS: PCP Specialist; Referring Provider Specialist; Visit Provider Radiology Diagnostic Radiology
DX: K70.31 Alcoholic cirrhosis of liver with ascites (principal)
CPT/HCPCS: 49083; C1729

== ENCOUNTER → 2025-07-25 | Outpatient (CLI) | payer MEDICARE, MEDICAID, SELFPAY ==
--- NOTE | 2025-07-25 11:30 | XR_ITS ---
Examination: Ultrasound-guided paracentesis Abdominal sonogram limited Date and time of exam: July 25, 2025, 1228 hours INDICATIONS: Cirrhosis, ascites, increasing abdominal distention this week Informed consent provided. A timeout was completed verifying correct patient, procedure, site, positioning, and special adequate movement if applicable. Technique: Multiple sonographic images of the abdomen have been obtained. Appropriate area for paracentesis was marked. Local anesthesia is obtained with 1% lidocaine. Yueh catheter is successfully introduced. Findings: Abdominal sonographic images demonstrate sufficient ascitic fluid for paracentesis. After placing the Yueh catheter, 2400 cc of fluid were successfully removed. During and after completion of the procedure the patient appear in satisfactory and stable condition with no complications observed. Estimated blood loss 0 cc Impression: Abdominal ascites Successful ultrasound-guided paracentesis as described above
== END | disposition home or self-care (01) ==
PROVIDERS: PCP Hospitalist; Referring Provider Hospitalist; Visit Provider Radiology Diagnostic Radiology
DX: K70.31 Alcoholic cirrhosis of liver with ascites (principal)
CPT/HCPCS: 49083; C1729

== ENCOUNTER → 2025-08-01 | Outpatient (CLI) | payer MEDICARE, MEDICAID, SELFPAY ==
--- NOTE | 2025-08-01 10:30 | XR_ITS ---
Examination: Ultrasound-guided paracentesis Abdominal sonogram limited INDICATION: Ascites Date and time of exam: 08/01/2025, 10:18 a.m. Informed consent provided. A timeout was completed verifying correct patient, procedure, site, positioning, and special adequate movement if applicable. Technique: Multiple sonographic images of the abdomen have been obtained. Appropriate area for paracentesis was marked. Local anesthesia is obtained with 1% lidocaine. Yueh catheter is successfully introduced. Findings: Abdominal sonographic images demonstrate sufficient ascitic fluid for paracentesis. After placing the Yueh catheter, 4600 cc of fluid were successfully removed. During and after completion of the procedure the patient appear in satisfactory and stable condition with no complications observed. Estimated blood loss 0 cc Impression: Abdominal ascites Successful ultrasound-guided paracentesis as described above
== END | disposition home or self-care (01) ==
LOC: SIRX 10:40
PROVIDERS: PCP Specialist; Referring Provider Specialist; Visit Provider Radiology Diagnostic Radiology
DX: K70.31 Alcoholic cirrhosis of liver with ascites (principal)
CPT/HCPCS: 49083; C1729

== ENCOUNTER → 2025-08-08 | Outpatient (CLI) | payer MEDICARE, MEDICAID, SELFPAY ==
--- NOTE | 2025-08-08 11:00 | XR_ITS ---
Examination: Abdomen sonogram, Limited Date and time of exam: August 08, 2025, 1146 hours INDICATIONS: Cirrhosis, increasing ascites abdominal distention this week Technique: Real-time hathaway scale transabdominal sonographic images of the upper abdomen obtained. Findings: Minimal ascitic fluid IMPRESSION: Minimal ascitic fluid
== END | disposition home or self-care (01) ==
PROVIDERS: PCP Hospitalist; Referring Provider Hospitalist; Visit Provider Hospitalist
DX: K70.31 Alcoholic cirrhosis of liver with ascites (principal)
CPT/HCPCS: 76705

== ENCOUNTER → 2025-08-15 | Outpatient (CLI) | payer MEDICARE, MEDICAID, SELFPAY ==
--- NOTE | 2025-08-15 11:00 | XR_ITS ---
Examination: Ultrasound-guided paracentesis Abdominal sonogram limited Date and time of exam: August 15, 2025, 1157 hours INDICATIONS: Cirrhosis increasing ascites abdominal distention this week Informed consent provided. A timeout was completed verifying correct patient, procedure, site, positioning, and special adequate movement if applicable. Technique: Multiple sonographic images of the abdomen have been obtained. Appropriate area for paracentesis was marked. Local anesthesia is obtained with 1% lidocaine. Yueh catheter is successfully introduced. Findings: Abdominal sonographic images demonstrate sufficient ascitic fluid for paracentesis. After placing the Yueh catheter, 4950 cc of fluid were successfully removed. During and after completion of the procedure the patient appear in satisfactory and stable condition with no complications observed. Estimated blood loss 0 cc Impression: Abdominal ascites Successful ultrasound-guided paracentesis as described above
== END | disposition home or self-care (01) ==
PROVIDERS: PCP Hospitalist; Referring Provider Hospitalist; Visit Provider Radiology Diagnostic Radiology
DX: K70.31 Alcoholic cirrhosis of liver with ascites (principal)
CPT/HCPCS: 49083; C1729